=== PATIENT | female | born 1985 | race Caucasian/White ===

== ENCOUNTER 2016-07-06 08:23 | Emergency (ER) | payer OTHER ==
[2016-07-06 08:30] VITALS: BMI 22.4
--- NOTE | 2016-07-06 10:36 | PDOC ---
History of Present Illness <Zenon Merida - Last Filed: 07/06/16 15:31> - History of Present Illness Initial Comments: 07/06/16 15:38 The patient is a 30 year old with no past medical hx who presents to the ED complaining of left eye pain and chest pain since today. The patient states her chest pain is exacerbated with pressure but denies any radiation of pain. The patient states her left eye feels as if it is irritated but denies any changes in vision. The patient denies SOB The patient denies fever, chills The patient denies nausea, vomiting, diarrhea Allergies: albuterol Surgical: Denies tobacco use Social:No toxic habits reported PCP: Dr. Che <Cindy Perez - Last Filed: 07/06/16 15:39> - General Chief Complaint: Pain Stated Complaint: LT SIDE PAIN Time Seen by Provider: 07/06/16 08:39 Past History - Past Medical History Asthma: Yes - Psycho/Social/Smoking Cessation Hx Suicidal Ideation: No Smoking History: Never smoked Information on smoking cessation initiated: No <Zenon Merida - Last Filed: 07/06/16 15:31> <Cindy Perez - Last Filed: 07/06/16 15:39> - Past Medical History Allergies/Adverse Reactions: Allergies Allergy/AdvReac Type Severity Reaction Status Date / Time albuterol Allergy Verified 07/06/16 08:30 Home Medications: Ambulatory Orders Ciprofloxacin 0.3% Eye Drops [Ciloxan 0.3% Eye Drops -] 1 drop OU Q4H #1 bottle 07/06/16 Review of Systems - Review of Systems Able to Perform ROS?: Yes Comments:: 07/06/16 15:38 CONSTITUTIONAL: Absent: fever, chills, diaphoresis, generalized weakness, malaise, loss of appetite HEENT: +Left eye pain. Absent: rhinorrhea, nasal congestion, throat pain, throat swelling, difficulty swallowing, mouth swelling, ear pain, visual Changes CARDIOVASCULAR: +Chest pain. Absent: syncope, palpitations, irregular heart rate, lightheadedness, peripheral edema RESPIRATORY: Absent: cough, shortness of breath, dyspnea with exertion, orthopnea, wheezing, stridor, hemoptysis GASTROINTESTINAL: Absent: abdominal pain, abdominal distension, nausea, vomiting, diarrhea, constipation, melena, hematochezia GENITOURINARY: Absent: dysuria, frequency, urgency, hesitancy, hematuria, flank pain, genital pain MUSCULOSKELETAL: Absent: myalgia, arthralgia, joint swelling SKIN: Absent: rash, itching, pallor HEMATOLOGIC/IMMUNOLOGIC: Absent: easy bleeding, easy bruising, lymphadenopathy, frequent infections ENDOCRINE: Absent: unexplained weight gain, unexplained weight loss, heat intolerance, cold intolerance NEUROLOGIC: Absent: headache, focal weakness or paresthesias, dizziness, unsteady gait, seizure, mental status changes, bladder or bowel incontinence PSYCHIATRIC: Absent: anxiety, depression, suicidal or homicidal ideation, hallucinations. <Valorie Perezyn - Last Filed: 07/06/16 15:39> *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 - Vital Signs Last Vital Signs Temp Pulse Resp BP Pulse Ox 98 F 74 18 132/76 99 07/06/16 08:27 07/06/16 08:27 07/06/16 08:27 07/06/16 08:27 07/06/16 08:27 <Zenon Merida - Last Filed: 07/06/16 15:31> - Vital Signs Last Vital Signs Temp Pulse Resp BP Pulse Ox 98.1 F 86 18 119/79 98 07/06/16 15:14 07/06/16 15:14 07/06/16 15:14 07/06/16 15:14 07/06/16 15:14 - 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 Comments: 07/06/16 15:39 GENERAL: Well developed, well nourished. Awake and alert. In no acute distress. HEENT: +Left eye conjunctiva is red, cornea is clear. Normocephalic, atraumatic. PERRLA , EOMI. Moist mucous membranes. Oropharynx is clear. NECK: Supple. Full ROM. No JVD. Carotid pulses 2+ and symmetric, without bruits. No thyromegaly. No lymphadenopathy. CARDIOVASCULAR: +Chest wall tenderness to palpation. Regular rate and rhythm. No murmurs, rubs, or gallops. Distal pulses are 2+ and symmetric. PULMONARY: No evidence of respiratory distress. Lungs clear to auscultation bilaterally. No wheezing, rales or rhonchi. ABDOMINAL: Soft. Non-tender. Non-distended. No rebound or guarding. No organomegaly. Normoactive bowel sounds. MUSCULOSKELETAL Normal range of motion at all joints. No bony deformities or tenderness. No CVA tenderness. EXTREMITIES: No cyanosis. No clubbing. No edema. No calf tenderness. SKIN: Warm and dry. Normal capillary refill. No rashes. No jaundice. NEUROLOGICAL: Alert, awake, appropriate. Cranial nerves 2-12 intact. No deficits to light touch and temperature in face, upper extremities and lower extremities. No motor deficits in the in face, upper extremities and lower extremities. Normoreflexic in the upper and lower extremities. Normal speech. PSYCHIATRIC: Cooperative. Good eye contact. Appropriate mood and affect. <Cindy Perez - Last Filed: 07/06/16 15:39> Heart Score/ECG Review - ECG Impressions Comment:: 07/06/16 15:23 EKG performed at 9:56 NSR with sinus arrhythmia at a rate of 68 bpm <Cindy Perez - Last Filed: 07/06/16 15:39> ED Treatment Course - LABORATORY CBC & Chemistry Diagram: 07/06/16 10:34 07/06/16 13:47 <Zenon Merida - Last Filed: 07/06/16 15:31> - LABORATORY CBC & Chemistry Diagram: 07/06/16 10:34 07/06/16 13:47 - ADDITIONAL ORDERS Additional order review: Laboratory Results 07/06/16 07/06/16 07/06/16 13:47 11:42 10:34 INR Sodium 143 Cancelled Cancelled Potassium 3.8 Cancelled Cancelled Chloride 108 H Cancelled Cancelled Carbon Dioxide 25 Cancelled Cancelled Anion Gap 10 Cancelled Cancelled BUN 8 Cancelled Cancelled Creatinine 0.5 L Cancelled Cancelled Creat Clearance w eGFR > 60 Cancelled Cancelled Random Glucose 85 Cancelled Cancelled Calcium 8.1 L Cancelled Cancelled Total Bilirubin 0.4 Cancelled Cancelled AST 21 Cancelled Cancelled ALT 18 Cancelled Cancelled Alkaline Phosphatase 73 Cancelled Cancelled Creatine Kinase 68 Cancelled Cancelled Troponin I < 0.02 Cancelled Cancelled Total Protein 6.0 L Cancelled Cancelled Albumin 3.1 L Cancelled Cancelled Urine Color Urine Appearance Urine pH Ur Specific Cobb Urine Protein Urine Glucose (UA) Urine Ketones Urine Blood Urine Nitrite Urine Bilirubin Urine Urobilinogen Ur Leukocyte Esterase Urine RBC Urine WBC Ur Epithelial Cells Urine Mucus Urine HCG, Qual 07/06/16 07/06/16 07/06/16 10:34 10:34 10:34 INR 1.07 Sodium Potassium Chloride Carbon Dioxide Anion Gap BUN Creatinine Creat Clearance w eGFR Random Glucose Calcium Total Bilirubin AST ALT Alkaline Phosphatase Creatine Kinase Troponin I Total Protein Albumin Urine Color Straw Urine Appearance Clear Urine pH 6.0 Ur Specific Cobb 1.009 Urine Protein Negative Urine Glucose (UA) Negative Urine Ketones Negative Urine Blood 3+ H Urine Nitrite Negative Urine Bilirubin Negative Urine Urobilinogen Negative Ur Leukocyte Esterase Negative Urine RBC 14 Urine WBC 6 Ur Epithelial Cells Rare Urine Mucus Rare Urine HCG, Qual Negative 07/06/16 10:34 RBC 4.60 MCV 80.9 MCHC 31.7 L RDW 15.0 MPV 7.6 Neutrophils % 62.1 Lymphocytes % 26.3 Monocytes % 8.8 Eosinophils % 1.7 Basophils % 1.1 <Cindy Perez - Last Filed: 07/06/16 15:39> *DC/Admit/Observation/Transfer - Discharge Dispostion Admit: No <Zenon Merida - Last Filed: 07/06/16 15:31> - Attestations Scribe Attestion: 07/06/16 15:23 Documentation prepared by Cindy Perez, acting as medical manager for Zenon Merida MD, /DO. <Cindy Perez - Last Filed: 07/06/16 15:39> Diagnosis at time of Disposition: Costochondral chest pain, Conjunctivitis - Discharge Dispostion Disposition: HOME Condition at time of disposition: Good - Prescriptions Prescriptions: Ciprofloxacin 0.3% Eye Drops [Ciloxan 0.3% Eye Drops -] 1 drop OU Q4H #1 bottle - Referrals Referrals: Rehana Che [Primary Care Provider] - - Patient Instructions Printed Discharge Instructions: DI for Conjunctivitis, DI for Costochondritis - Post Discharge Activity Work/School Note: Back to Work
[2016-07-06 11:02] LABS: URINE APPEARANCE CLEAR; URINE BILIRUBIN NEGATIVE (NEGATIVE); URINE COLOR STRAW; URINE GLUCOSE (UA) NEGATIVE (NEGATIVE); URINE KETONE NEGATIVE (NEGATIVE); URINE LEUK ESTERASE NEGATIVE (NEGATIVE); URINE NITRITE NEGATIVE (NEGATIVE); URINE PROTEIN NEGATIVE (NEGATIVE); URINE UROBILINOGEN NEGATIVE E.U./dl (0.2-1.0)
[2016-07-06 11:06] LABS: URINE BLOOD 3+ (NEGATIVE)
[2016-07-06 11:08] LABS: BASOPHIL 1.1 % (0-2.0); EOSINOPHIL 1.7 % (0-4.5); MCH 25.6 pg (25.7-33.7); MCHC 31.7 g/dl (32.0-36.0); MEAN CELL VOLUME 80.9 fl (80-96); MEAN PLT VOLUME 7.6 fl (7.5-11.1); NEUTROPHILS 62.1 % (42.8-82.8); PLATELET COUNT 304 K/MM3 (134-434); URINE MUCUS RARE; URINE RBC 14 /hpf (0-3); URINE WBC 6 /hpf (3-5)
[2016-07-06 11:52] LABS: INR 1.07 (0.82-1.09); PROTHROMBIN TIME (PATIENT) 11.8 SEC (9.98-11.88)
[2016-07-06 14:29] LABS: ALBUMIN 3.1 g/dl (3.4-5.0); ANION GAP 10 (8-16); BILIRUBIN,TOTAL 0.4 mg/dL (0.2-1.0); CALCIUM 8.1 mg/dL (8.5-10.1); CO2 25 mmol/L (21-32); CREATININE 0.5 mg/dL (0.55-1.02); GLUCOSE,RANDOM 85 mg/dL (74-106); SGPT/ALT 18 U/L (12-78)
[2016-07-06 14:31] LABS: ALK PHOS 73 U/L (45-117); TROPONIN I < 0.02 ng/ml (0.00-0.05)
[2016-07-06 14:32] LABS: SGOT/AST 21 U/L (15-37)
[2016-07-06 15:15] VITALS: BP 119/79; PULSE 86; TEMP 98.1
--- NOTE | 2016-07-06 15:32 | EKG ---
Test Reason : Blood Pressure : / mmHG Vent. Rate : 068 BPM Atrial Rate : 068 BPM P-R Int : 160 ms QRS Dur : 072 ms QT Int : 406 ms P-R-T Axes : 067 059 047 degrees QTc Int : 431 ms NORMAL SINUS RHYTHM WITH SINUS ARRHYTHMIA NORMAL ECG NO PREVIOUS ECGS AVAILABLE Confirmed by TERRY GRAHAM, ROMI ([id number]) on 07/06/2016 3:31:57 PM Referred By: Confirmed By:ROMI STEWART MD
== END 2016-07-06 15:40 | disposition home or self-care (01) ==
LOC: JERFT 08:23 → JER 08:23
DX: M94.0 Chondrocostal junction syndrome [Tietze] (principal); H10.32 Unspecified acute conjunctivitis, left eye
CPT/HCPCS: 36415; 80053; 81003; 81015; 82550; 84484; 84703; 85025; 85610; 93005; 93010; 99284-25

== ENCOUNTER 2016-08-19 17:30 | Emergency (ER) | payer OTHER ==
[2016-08-19 17:40] VITALS: BP 131/76; PULSE 93; TEMP 97.8; BMI 21.8
[2016-08-19] MEDS ORDERED: IBUPROFEN 600 MG TABLET (FP) PO ONE ×2 (19:17→20:01)
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
== END 2016-08-19 21:02 | disposition home or self-care (01) ==
LOC: JERFT 17:30
DX: S46.912A Strain of unspecified muscle, fascia and tendon at shoulder and upper arm level, left arm, initial encounter (principal); S40.022A Contusion of left upper arm, initial encounter; V78.1XXA Passenger on bus injured in noncollision transport accident in nontraffic accident, initial encounter; Y92.414 Local residential or business street as the place of occurrence of the external cause; Y93.89 Activity, other specified
CPT/HCPCS: 73030-TC-LT; 84703; 99281-25

== ENCOUNTER 2016-11-21 17:47 | Emergency (ER) | payer OTHER ==
[2016-11-21 17:54] VITALS: BP 126/60; PULSE 93; TEMP 98.3; BMI 22.3
--- NOTE | 2016-11-21 17:54 | PDOC ---
Rapid Medical Evaluation Time Seen by Provider: 11/21/16 17:50 Medical Evaluation: Allergies Allergy/AdvReac Type Severity Reaction Status Date / Time albuterol Allergy Verified 08/19/16 17:37 I have performed a brief in-person evaluation of this patient. The patient presents with a chief complaint of: nausea, vomiting, diarrhea today ; now she has abdominal discomfort. Pt admits to fever at home but did not take a temperature. She is afebrile in the ER. Pertinent physical exam findings: TTP of lower abdomen and suprapubic region I have ordered the following: hcg, UA, culture The patient will proceed to the ED for further evaluation.
[2016-11-21 18:08] LABS: URINE APPEARANCE CLEAR; URINE BILIRUBIN NEGATIVE (NEGATIVE); URINE BLOOD NEGATIVE (NEGATIVE); URINE COLOR LTYELLOW; URINE GLUCOSE (UA) NEGATIVE (NEGATIVE); URINE KETONE 1+ (NEGATIVE); URINE NITRITE NEGATIVE (NEGATIVE); URINE PROTEIN NEGATIVE (NEGATIVE); URINE UROBILINOGEN NEGATIVE E.U./dl (0.2-1.0)
[2016-11-21 18:10] LABS: URINE LEUK ESTERASE 2+ (NEGATIVE)
--- NOTE | 2016-11-21 19:00 | PDOC ---
History of Present Illness - General Chief Complaint: Pain Stated Complaint: VOMITING/DIARRHEA Time Seen by Provider: 11/21/16 17:50 History Source: Patient Exam Limitations: No Limitations, Language Barrier - History of Present Illness Travel History: No Initial Comments: 11/21/16 19:15 31-year-old female presents to the emergency department complaining of pain upon urination, urinary frequency/urgency/hesitancy 8 hours without fever, chills, nausea/vomiting/diarrhea, chest pain, shortness of breath, abdominal pains, flank pains. Past History - Past Medical History Allergies/Adverse Reactions: Allergies Allergy/AdvReac Type Severity Reaction Status Date / Time albuterol Allergy Verified 11/21/16 17:54 Home Medications: Ambulatory Orders Nitrofurantoin Monohyd/M-Cryst [Macrobid -] 100 mg PO BID #14 capsule 11/21/16 Omeprazole 20 mg PO DAILY 11/21/16 Asthma: Yes - Psycho/Social/Smoking Cessation Hx Suicidal Ideation: No Smoking History: Never smoked Information on smoking cessation initiated: No Review of Systems - Review of Systems Able to Perform ROS?: Yes Comments:: 11/21/16 20:05 CONSTITUTIONAL: Absent: fever, chills, diaphoresis, generalized weakness, malaise, loss of appetite HEENT: Absent: rhinorrhea, nasal congestion, throat pain, throat swelling, difficulty swallowing, mouth swelling, ear pain, eye pain, visual Changes CARDIOVASCULAR: Absent: chest pain, loss of consciousness, palpitations, irregular heart rate, peripheral edema RESPIRATORY: Absent: cough, shortness of breath, dyspnea with exertion, orthopnea, wheezing, stridor, hemoptysis GASTROINTESTINAL: Absent: abdominal pain, abdominal distension, nausea, vomiting, diarrhea, constipation, melena, hematochezia GENITOURINARY: +dysuria, frequency, urgency, hesitancy Absent: hematuria, flank pain, genital pain MUSCULOSKELETAL: Absent: myalgia, arthralgia, joint swelling SKIN: Absent: rash, itching, pallor HEMATOLOGIC/IMMUNOLOGIC: Absent: easy bleeding, easy bruising, lymphadenopathy, frequent infections ENDOCRINE: Absent: unexplained weight gain, unexplained weight loss, heat intolerance, cold intolerance NEUROLOGIC: Absent: headache, focal weakness or paresthesias, dizziness, unsteady gait, seizure, mental status changes, bladder or bowel incontinence PSYCHIATRIC: Absent: anxiety, depression, suicidal or homicidal ideation, hallucinations. Is the patient limited Urdu proficient: No *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 - Vital Signs Last Vital Signs Temp Pulse Resp BP Pulse Ox 98.3 F 93 H 18 126/60 98 11/21/16 17:50 11/21/16 17:50 11/21/16 17:50 11/21/16 17:50 11/21/16 17:50 - 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 Comments: 11/21/16 20:05 GENERAL: Well developed, well nourished. Awake and alert. No acute distress. HEENT: Normocephalic, atraumatic. PERRLA, EOMI. No conjunctival pallor. Sclera are non- icteric. Moist mucous membranes. Oropharynx is clear. NECK: Supple. Full ROM. No JVD. Carotid pulses 2+ and symmetric, without bruits. No thyromegaly. No lymphadenopathy. CARDIOVASCULAR: Regular rate and rhythm. No murmurs, rubs, or gallops. Distal pulses are 2+ and symmetric. PULMONARY: No evidence of respiratory distress. Lungs clear to auscultation bilaterally. No wheezing, rales or rhonchi. ABDOMINAL: +bladder pressure on palp Soft. Non-tender. Non-distended. No rebound or guarding. No organomegaly. Normoactive bowel sounds. MUSCULOSKELETAL Normal range of motion at all joints. No bony deformities or tenderness. No CVA tenderness. EXTREMITIES: No cyanosis. No clubbing. No edema. No calf tenderness. SKIN: Warm and dry. Normal capillary refill. No rashes. No jaundice. NEUROLOGICAL: Alert, awake, appropriate. Cranial nerves 2-12 intact. No deficits to light touch and temperature in face, upper extremities and lower extremities. No motor deficits in the in face, upper extremities and lower extremities. Normoreflexic in the upper and lower extremities. Normal speech. Toes are down- going bilaterally. Gait is normal without ataxia. PSYCHIATRIC: Cooperative. Good eye contact. Appropriate mood and affect. ED Treatment Course - LABORATORY CBC & Chemistry Diagram: 11/21/16 19:00 11/21/16 19:00 - ADDITIONAL ORDERS Additional order review: Laboratory Results 11/21/16 17:44 Urine Color Ltyellow Urine Appearance Clear Urine pH 6.0 Urine Protein Negative Urine Glucose (UA) Negative Urine Ketones 1+ H Urine Blood Negative Urine Nitrite Negative Urine Bilirubin Negative Urine Urobilinogen Negative Ur Leukocyte Esterase 2+ H Urine HCG, Qual Negative *DC/Admit/Observation/Transfer Diagnosis at time of Disposition: UTI (urinary tract infection) Qualifiers: Urinary tract infection type: acute cystitis Hematuria presence: without hematuria Qualified Code(s): N30.00 - Acute cystitis without hematuria - Discharge Dispostion Disposition: HOME Condition at time of disposition: Stable Admit: No - Prescriptions Prescriptions: Nitrofurantoin Monohyd/M-Cryst [Macrobid -] 100 mg PO BID #14 capsule - Referrals Referrals: STAFF,NOT ON [Primary Care Provider] - Jay Coffey MD [Staff Physician] - - Patient Instructions Printed Discharge Instructions: DI for Urinary Tract Infection (UTI) Print Language: SETS[place] - Post Discharge Activity Work/School Note: Back to Work
[2016-11-21 19:12] LABS: BASOPHIL 0.6 % (0-2.0); EOSINOPHIL 0.6 % (0-4.5); MCH 24.8 pg (25.7-33.7); MCHC 31.1 g/dl (32.0-36.0); MEAN CELL VOLUME 79.7 fl (80-96); MEAN PLT VOLUME 8.5 fl (7.5-11.1); NEUTROPHILS 78.2 % (42.8-82.8); PLATELET COUNT 334 K/MM3 (134-434); RDW 15.5 % (11.6-15.6); WHITE BLOOD COUNT 11.1 K/mm3 (4.0-10.0)
[2016-11-21] MEDS ORDERED: NITROFURANTOIN MACROCRYSTAL 50 MG CAPSULE (FP) PO SCH (19:30)
[2016-11-21] MEDS ORDERED: NITROFURANTOIN MACROCRYSTAL 50 MG CAPSULE (FP) ONE (19:33)
[2016-11-21 19:35] LABS: ALBUMIN 3.4 g/dl (3.4-5.0); ALK PHOS 89 U/L (45-117); ANION GAP 11 (8-16); BILIRUBIN,TOTAL 0.6 mg/dL (0.2-1.0); CALCIUM 8.2 mg/dL (8.5-10.1); CO2 26 mmol/L (21-32); COCKROFT - GAULT 124.1425; CREATININE 0.6 mg/dL (0.55-1.02); GLUCOSE,RANDOM 104 mg/dL (74-106); SGPT/ALT 23 U/L (12-78); TOT PROT 6.5 g/dl (6.4-8.2)
[2016-11-21 19:38] LABS: SGOT/AST 26 U/L (15-37)
[2016-11-21 19:56] LABS: URINE MUCUS RARE; URINE RBC 2 /hpf (0-3); URINE WBC 58 /hpf (3-5)
[2016-11-21] MEDS ORDERED: SODIUM CHLORIDE 1,000 ML IV STA (20:09)
--- NOTE | 2016-11-21 20:26 | PDOC ---
*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 - Vital Signs Last Vital Signs Temp Pulse Resp BP Pulse Ox 98.3 F 93 H 18 126/60 98 11/21/16 17:50 11/21/16 17:50 11/21/16 17:50 11/21/16 17:50 11/21/16 17:50 ED Treatment Course - LABORATORY CBC & Chemistry Diagram: 11/21/16 19:00 11/21/16 19:00 - ADDITIONAL ORDERS Additional order review: Laboratory Results 11/21/16 11/21/16 19:00 17:44 Sodium 143 Potassium 3.8 Chloride 106 Carbon Dioxide 26 Anion Gap 11 BUN 11 D Creatinine 0.6 Creat Clearance w eGFR > 60 Random Glucose 104 D Calcium 8.2 L Total Bilirubin 0.6 D AST 26 D ALT 23 D Alkaline Phosphatase 89 D Total Protein 6.5 Albumin 3.4 Urine Color Ltyellow Urine Appearance Clear Urine pH 6.0 Urine Protein Negative Urine Glucose (UA) Negative Urine Ketones 1+ H Urine Blood Negative Urine Nitrite Negative Urine Bilirubin Negative Urine Urobilinogen Negative Ur Leukocyte Esterase 2+ H Urine RBC 2 Urine WBC 58 Ur Epithelial Cells Rare Urine Mucus Rare Urine HCG, Qual Negative 11/21/16 19:00 RBC 4.72 MCV 79.7 L MCHC 31.1 L RDW 15.5 MPV 8.5 D Neutrophils % 78.2 D Lymphocytes % 15.2 D Monocytes % 5.4 Eosinophils % 0.6 Basophils % 0.6 Medical Decision Making - Medical Decision Making 11/21/16 20:26 agree with care from TAMEKA Boswell *DC/Admit/Observation/Transfer Diagnosis at time of Disposition: UTI (urinary tract infection) Qualifiers: Urinary tract infection type: acute cystitis Hematuria presence: without hematuria Qualified Code(s): N30.00 - Acute cystitis without hematuria - Discharge Dispostion Condition at time of disposition: Stable - Prescriptions Prescriptions: Nitrofurantoin Monohyd/M-Cryst [Macrobid -] 100 mg PO BID #14 capsule - Referrals Referrals: Jay Coffey MD [Staff Physician] - STAFF,NOT ON [Primary Care Provider] - - Patient Instructions Printed Discharge Instructions: DI for Urinary Tract Infection (UTI) Print Language: [place]AST [place] - Post Discharge Activity Work/School Note: Back to Work
== END 2016-11-21 20:37 | disposition home or self-care (01) ==
LOC: JER 17:47
PROC: 3E0337Z Introduction of Electrolytic and Water Balance Substance into Peripheral Vein, Percutaneous Approach (ICD-10-PCS; principal; 2016-11-21)
DX: N30.00 Acute cystitis without hematuria (principal)
CPT/HCPCS: 36415; 80053; 81003; 81015; 84703; 85025; 87086; 96360; 99284-25

== ENCOUNTER 2017-07-10 16:16 | Emergency (ER) | payer OTHER ==
[2017-07-10] MEDS ORDERED: SODIUM CHLORIDE 1,000 ML IV STA (16:18)
[2017-07-10] MEDS ORDERED: METOCLOPRAMIDE HCL INJECTION 10 MG/2 ML VIAL IVPB ONE (16:18)
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
[2017-07-10 16:22] VITALS: BP 126/82; PULSE 100; TEMP 98.3; BMI 26.6
[2017-07-10 17:06] LABS: BASO % 0.5 % (0-2.0); HEMATOCRIT 39.2 % (32.4-45.2)
[2017-07-10 17:22] LABS: EOS % 1.8 % (0-4.5); HEMOGLOBIN 12.1 GM/dL (10.7-15.3); LYMPH % 22.5 % (8-40); MCH 24.7 pg (25.7-33.7); MCHC 30.9 g/dl (32.0-36.0); MEAN CELL VOLUME 79.8 fl (80-96); MEAN PLT VOLUME 7.9 fl (7.5-11.1); NEUT % 68.2 % (42.8-82.8); PLATELET COUNT 318 K/MM3 (134-434); RBC 4.91 M/mm3 (3.60-5.2); RDW 14.8 % (11.6-15.6); WHITE BLOOD COUNT 9.2 K/mm3 (4.0-10.0)
[2017-07-10 17:25] LABS: URINE APPEARANCE SLCLOUDY; URINE BILIRUBIN NEGATIVE (NEGATIVE); URINE BLOOD 1+ (NEGATIVE); URINE COLOR LTYELLOW; URINE GLUCOSE (UA) NEGATIVE (NEGATIVE); URINE KETONE 1+ (NEGATIVE); URINE NITRITE NEGATIVE (NEGATIVE); URINE PROTEIN NEGATIVE (NEGATIVE); URINE UROBILINOGEN NEGATIVE mg/dL (0.2-1.0)
[2017-07-10 17:35] LABS: URINE LEUK ESTERASE 3+ (NEGATIVE)
[2017-07-10 17:38] LABS: EPI CELLS RARE /HPF (FEW); URINE BACTERIA FEW /hpf (NONE SEEN); URINE MUCUS RARE
[2017-07-10 17:40] LABS: ALBUMIN 3.7 g/dl (3.4-5.0); ANION GAP 9 (8-16); BLOOD UREA NITROGEN 11 mg/dL (7-18); CALCIUM 8.6 mg/dL (8.5-10.1); CHLORIDE 106 mmol/L (98-107); CO2 26 mmol/L (21-32); CREATININE 0.6 mg/dL (0.55-1.02); GLUCOSE,RANDOM 86 mg/dL (74-106); POTASSIUM 3.9 mmol/L (3.5-5.1); SGOT/AST 23 U/L (15-37); SGPT/ALT 30 U/L (12-78); SODIUM 141 mmol/L (136-145)
[2017-07-10 17:42] LABS: ALK PHOS 78 U/L (45-117); BILIRUBIN,TOTAL 0.6 mg/dL (0.2-1.0)
[2017-07-10] MEDS ORDERED: KETOROLAC TROMETHAMINE 30 MG/1 ML VIAL IVPUSH ONE (20:28)
--- NOTE | 2017-07-10 20:30 | PDOC ---
History of Present Illness - General History Source: Patient Exam Limitations: No Limitations - History of Present Illness Initial Comments: 07/10/17 21:07 The patient is a 31 year old female with no significant PMH who presents to the emergency department with flu-like symptoms including fever, body aches, generalized malaise, vomiting, and diarrhea beginning approximately 3 days ago. The patient denies sick contacts. The patient denies chest pain, shortness of breath, headache and dizziness. Denies chills and constipation. Denies dysuria, frequency, urgency and hematuria. Allergies: Albuterol Past surgical history: None reported. Social history: No reported cigarette, alcohol, or drug use. PCP: None reported. <Bonilla Chavez - Last Filed: 07/10/17 21:07> - General History Source: Patient <Lenny Moore - Last Filed: 07/10/17 21:58> - General Chief Complaint: Pain Stated Complaint: FATIGUE,VOMITING, DIARRHEA,HEADACHE Time Seen by Provider: 07/10/17 16:18 Past History <Bonilla Chavez - Last Filed: 07/10/17 21:07> - Past Medical History Asthma: Yes COPD: No Other medical history: migrane - Suicide/Smoking/Psychosocial Hx Smoking History: Never smoked Information on smoking cessation initiated: No Hx Alcohol Use: No Drug/Substance Use Hx: No Substance Use Type: None <Lenny Moore - Last Filed: 07/10/17 21:58> - Past Medical History Allergies/Adverse Reactions: Allergies Allergy/AdvReac Type Severity Reaction Status Date / Time albuterol Allergy Verified 07/10/17 16:22 Home Medications: Ambulatory Orders Nitrofurantoin Monohyd/M-Cryst [Macrobid -] 100 mg PO BID #14 capsule 11/21/16 Omeprazole 20 mg PO DAILY 11/21/16 Ibuprofen 800 mg PO TID #30 tablet 07/10/17 Levofloxacin [Levaquin -] 500 mg PO DAILY #4 tablet 07/10/17 Metoclopramide HCl [Reglan -] 10 mg PO TID #30 tablet 07/10/17 Review of Systems - Review of Systems Able to Perform ROS?: Yes Comments:: 07/10/17 21:07 CONSTITUTIONAL: (+) Fever. (+) Body aches. (+) Generalized malaise. Absent: fever, chills, diaphoresis, generalized weakness, malaise, loss of appetite HEENT: Absent: rhinorrhea, nasal congestion, throat pain, throat swelling, difficulty swallowing, mouth swelling, ear pain, eye pain, visual Changes CARDIOVASCULAR: Absent: chest pain, syncope, palpitations, irregular heart rate, lightheadedness , peripheral edema RESPIRATORY: Absent: cough, shortness of breath, dyspnea with exertion, orthopnea, wheezing, stridor, hemoptysis GASTROINTESTINAL: (+) Vomiting. (+) Diarrhea. Absent: abdominal pain, abdominal distension, nausea, vomiting, diarrhea, constipation, melena, hematochezia GENITOURINARY: Absent: dysuria, frequency, urgency, hesitancy, hematuria, flank pain, genital pain MUSCULOSKELETAL: Absent: myalgia, arthralgia, joint swelling SKIN: Absent: rash, itching, pallor HEMATOLOGIC/IMMUNOLOGIC: Absent: easy bleeding, easy bruising, lymphadenopathy, frequent infections ENDOCRINE: Absent: unexplained weight gain, unexplained weight loss, heat intolerance, cold intolerance NEUROLOGIC: Absent: headache, focal weakness or paresthesias, dizziness, unsteady gait, seizure, mental status changes, bladder or bowel incontinence PSYCHIATRIC: Absent: anxiety, depression, suicidal or homicidal ideation, hallucinations. <Bonilla Chavez - Last Filed: 07/10/17 21:07> *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 - Vital Signs Last Vital Signs Temp Pulse Resp BP Pulse Ox 98.3 F 100 H 19 126/82 100 07/10/17 16:19 07/10/17 16:19 07/10/17 16:19 07/10/17 16:19 07/10/17 16:19 - 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 Comments: 07/10/17 21:07 GENERAL: (+) Mild distress. Well developed, well nourished. Awake and alert. No acute distress. HEENT: Normocephalic, atraumatic. PERRLA, EOMI. No conjunctival pallor. Sclera are non- icteric. Moist mucous membranes. Oropharynx is clear. NECK: Supple. Full ROM. No JVD. Carotid pulses 2+ and symmetric, without bruits. No thyromegaly. No lymphadenopathy. CARDIOVASCULAR: (+) Tachycardic. Regular rate and rhythm. No murmurs, rubs, or gallops. Distal pulses are 2+ and symmetric. PULMONARY: No evidence of respiratory distress. Lungs clear to auscultation bilaterally. No wheezing, rales or rhonchi. ABDOMINAL: Soft. Non-tender. Non-distended. No rebound or guarding. No organomegaly. Normoactive bowel sounds. MUSCULOSKELETAL Normal range of motion at all joints. No bony deformities or tenderness. No CVA tenderness. EXTREMITIES: No cyanosis. No clubbing. No edema. No calf tenderness. BACK: (+) Mild CVA tenderness bilaterally. SKIN: Warm and dry. Normal capillary refill. No rashes. No jaundice. NEUROLOGICAL: Alert, awake, appropriate. Cranial nerves 2-12 intact. No deficits to light touch and temperature in face, upper extremities and lower extremities. No motor deficits in the in face, upper extremities and lower extremities. Normoreflexic in the upper and lower extremities. Normal speech. Toes are downgoing bilaterally. Gait is normal without ataxia. PSYCHIATRIC: Cooperative. Good eye contact. Appropriate mood and affect. <Bonilla Chavez - Last Filed: 07/10/17 21:07> - Vital Signs Last Vital Signs Temp Pulse Resp BP Pulse Ox 98.3 F 100 H 19 126/82 100 07/10/17 16:19 07/10/17 16:19 07/10/17 16:19 07/10/17 16:19 07/10/17 16:19 <Lenny Moore - Last Filed: 07/10/17 21:58> ED Treatment Course - LABORATORY CBC & Chemistry Diagram: 07/10/17 16:43 07/10/17 16:43 - ADDITIONAL ORDERS Additional order review: Laboratory Results 07/10/17 07/10/17 07/10/17 16:45 16:43 16:43 Sodium 141 Potassium 3.9 Chloride 106 Carbon Dioxide 26 Anion Gap 9 BUN 11 Creatinine 0.6 Creat Clearance w eGFR > 60 Random Glucose 86 Calcium 8.6 Total Bilirubin 0.6 AST 23 ALT 30 Alkaline Phosphatase 78 Total Protein 7.0 Albumin 3.7 Serum , Qual Negative Urine Color Ltyellow Urine Appearance Slcloudy Urine pH 6.0 Ur Specific [place] 1.011 Urine Protein Negative Urine Glucose (UA) Negative Urine Ketones 1+ H Urine Blood 1+ H Urine Nitrite Negative Urine Bilirubin Negative Urine Urobilinogen Negative Ur Leukocyte Esterase 3+ H Urine WBC (Auto) 25 Urine RBC (Auto) 1 Ur Epithelial Cells Rare Urine Bacteria Few Urine Mucus Rare 07/10/17 16:20 Influenza Types A,B Antigen (PEPE) - Final Nasopharyngeal Swab - Final 07/10/17 16:43 RBC 4.91 MCV 79.8 L MCHC 30.9 L RDW 14.8 MPV 7.9 Neutrophils % 68.2 Lymphocytes % 22.5 D Monocytes % 7.0 Eosinophils % 1.8 D Basophils % 0.5 - Medications Given in the ED: ED Medications Discontinued Medications Generic Name Dose Route Start Last Admin Trade Name Freq PRN Reason Stop Dose Admin Ceftriaxone Sodium 1,000 mg 07/10/17 20:28 07/10/17 21:02 Rocephin - IVPB 07/10/17 20:29 1,000 mg ONCE ONE Administration Sodium Chloride 1,000 mls @ 1,000 mls/hr 07/10/17 16:18 07/10/17 21:02 Normal Saline - IV 07/10/17 17:17 1,000 mls/hr ASDIR STA Administration Ketorolac Tromethamine 30 mg 07/10/17 20:28 07/10/17 21:02 Toradol Injection - IVPUSH 07/10/17 20:29 30 mg ONCE ONE Administration Metoclopramide HCl 10 mg 07/10/17 16:18 07/10/17 21:02 Reglan Injection - IVPB 07/10/17 16:19 10 mg ONCE ONE Administration <Bonilla Chavez - Last Filed: 07/10/17 21:07> - LABORATORY CBC & Chemistry Diagram: 07/10/17 16:43 07/10/17 16:43 - ADDITIONAL ORDERS Additional order review: Laboratory Results 07/10/17 07/10/17 07/10/17 16:45 16:43 16:43 Sodium 141 Potassium 3.9 Chloride 106 Carbon Dioxide 26 Anion Gap 9 BUN 11 Creatinine 0.6 Creat Clearance w eGFR > 60 Random Glucose 86 Calcium 8.6 Total Bilirubin 0.6 AST 23 ALT 30 Alkaline Phosphatase 78 Total Protein 7.0 Albumin 3.7 Serum , Qual Negative Urine Color Ltyellow Urine Appearance Slcloudy Urine pH 6.0 Ur Specific [place] 1.011 Urine Protein Negative Urine Glucose (UA) Negative Urine Ketones 1+ H Urine Blood 1+ H Urine Nitrite Negative Urine Bilirubin Negative Urine Urobilinogen Negative Ur Leukocyte Esterase 3+ H Urine WBC (Auto) 25 Urine RBC (Auto) 1 Ur Epithelial Cells Rare Urine Bacteria Few Urine Mucus Rare 07/10/17 16:20 Influenza Types A,B Antigen (PEPE) - Final Nasopharyngeal Swab - Final 07/10/17 16:43 RBC 4.91 MCV 79.8 L MCHC 30.9 L RDW 14.8 MPV 7.9 Neutrophils % 68.2 Lymphocytes % 22.5 D Monocytes % 7.0 Eosinophils % 1.8 D Basophils % 0.5 <Lenny Moore - Last Filed: 07/10/17 21:58> Medical Decision Making - Medical Decision Making 07/10/17 21:58 Dr. Moore: The scribe's documentation has been prepared under my direction and personally reviewed by me in its entirery. I confirm that the note above accurately reflects all work, treatment, procedures, and medical decision making performed by me. <Lenny Moore - Last Filed: 07/10/17 21:58> *DC/Admit/Observation/Transfer - Attestations Scribe Attestion: 07/10/17 21:08 Documentation prepared by Bonilla Chavez, acting as medical accounts receivable specialist for Lenny Moore DO. <Bonilla Chavez - Last Filed: 07/10/17 21:07> - Discharge Dispostion Admit: No <Lenny Moore - Last Filed: 07/10/17 21:58> Diagnosis at time of Disposition: UTI (urinary tract infection) Qualifiers: Urinary tract infection type: site unspecified Hematuria presence: without hematuria Qualified Code(s): N39.0 - Urinary tract infection, site not specified - Discharge Dispostion Disposition: HOME Condition at time of disposition: Stable - Prescriptions Prescriptions: Levofloxacin [Levaquin -] 500 mg PO DAILY #4 tablet - Patient Instructions Printed Discharge Instructions: DI for Urinary Tract Infection (UTI) Additional Instructions: Take medications as directed. Please follow up with your doctor in two for re- evaluation. Drink plenty of fluids. Return if any problems. Print Language: MALDIVIAN
[2017-07-10] MEDS ORDERED: CEFTRIAXONE 1 GM/50 ML BAG ONE (20:46)
[2017-07-10] MEDS ORDERED: METOCLOPRAMIDE HCL INJECTION 10 MG/2 ML VIAL ONE (20:46)
[2017-07-10] MEDS ORDERED: KETOROLAC TROMETHAMINE 30 MG/1 ML VIAL ONE (20:46)
== END 2017-07-10 22:05 | disposition home or self-care (01) ==
LOC: JER 16:16
PROC: 3E03329 Introduction of Other Anti-infective into Peripheral Vein, Percutaneous Approach (ICD-10-PCS; principal; 2017-07-10)
PROC: 3E0333Z Introduction of Anti-inflammatory into Peripheral Vein, Percutaneous Approach (ICD-10-PCS; 2017-07-10)
PROC: 3E033GC Introduction of Other Therapeutic Substance into Peripheral Vein, Percutaneous Approach (ICD-10-PCS; 2017-07-10)
DX: N39.0 Urinary tract infection, site not specified (principal)
CPT/HCPCS: 36415; 80053; 81003; 81015; 84703; 85025; 87804; 96374; 96375; 99281-25

== ENCOUNTER 2017-08-24 16:55 | Emergency (ER) | payer OTHER ==
--- NOTE | 2017-08-24 17:20 | PDOC ---
Rapid Medical Evaluation Time Seen by Provider: 08/24/17 17:18 Medical Evaluation: Allergies Allergy/AdvReac Type Severity Reaction Status Date / Time albuterol Allergy Verified 08/24/17 17:17 08/24/17 17:18 I have performed a brief in-person evaluation of this patient. The patient presents with a chief complaint of: , ~8 weeks , s/p US @ 5 weeks w/ "empty sac", scheduled for rpt US in near future per pt, here w/ pelvic pain radiating to lower back w/ ?dysuria/freq since yesterday. No f/c or vag bleed Pertinent physical exam findings:stable w/ unremarkable exam I have ordered the following:beta/ua/US The patient will proceed to the ED for further evaluation.
[2017-08-24 17:22] VITALS: PULSE 78; BMI 20.9
[2017-08-24 17:48] LABS: URINE APPEARANCE CLEAR; URINE BILIRUBIN NEGATIVE (NEGATIVE); URINE BLOOD NEGATIVE (NEGATIVE); URINE COLOR LTYELLOW; URINE GLUCOSE (UA) NEGATIVE (NEGATIVE); URINE KETONE NEGATIVE (NEGATIVE); URINE LEUK ESTERASE TRACE (NEGATIVE); URINE NITRITE NEGATIVE (NEGATIVE); URINE PROTEIN NEGATIVE (NEGATIVE); URINE UROBILINOGEN NEGATIVE mg/dL (0.2-1.0)
[2017-08-24 17:51] LABS: EPI CELLS RARE /HPF (FEW); URINE MUCUS RARE
[2017-08-24 18:28] LABS: BASO % 0.7 % (0-2.0); EOS % 2.3 % (0-4.5); HEMATOCRIT 35.1 % (32.4-45.2); HEMOGLOBIN 11.3 GM/dL (10.7-15.3); LYMPH % 28.1 % (8-40); MCH 25.9 pg (25.7-33.7); MCHC 32.3 g/dl (32.0-36.0); MEAN CELL VOLUME 80.3 fl (80-96); MEAN PLT VOLUME 7.7 fl (7.5-11.1); MONO % 8.3 % (3.8-10.2); NEUT % 60.6 % (42.8-82.8); PLATELET COUNT 302 K/MM3 (134-434); RBC 4.38 M/mm3 (3.60-5.2); RDW 15.6 % (11.6-15.6); WHITE BLOOD COUNT 7.5 K/mm3 (4.0-10.0)
--- NOTE | 2017-08-24 18:43 | PDOC ---
History of Present Illness <Sharonda Chamorro - Last Filed: 08/24/17 19:29> - History of Present Illness Initial Comments: 08/24/17 18:39 "The patient is a 32 year old female, , 8 weeks by LMP, with a significant PMH of asthma who presents to the emergency department with LLQ pain radiating to her suprapubic region. Pt states the pain began yesterday and is colicky in nature. She took Tylenol with no relief. Pt denies any N/V/D. Denies vaginal bleeding currently but reports yellowish discharge. Pt states that 3 weeks ago she presented to her can marker with vaginal spotting. Her OB did blood work but no ultrasound. She was scheduled for an outpt US but was unable to obtain this due to insurance reasons. The patient denies chest pain, shortness of breath, headache and dizziness. Denies fever, chills, nausea, vomit, diarrhea and constipation. Denies dysuria, frequency, urgency and hematuria. 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" <Jamshid Ku - Last Filed: 08/24/17 20:46> - General Chief Complaint: ,Possible Stated Complaint: PAIN (8 WKS ) Time Seen by Provider: 08/24/17 17:18 Past History <Sharonda Chamorro - Last Filed: 08/24/17 19:29> - Past Medical History Asthma: Yes COPD: No - Reproductive History Is Patient Now?: Yes (8 wks) (#): 2 Para: 1 Spontaneous : 0 - Immunization History Immunization Up to Date: Yes - Suicide/Smoking/Psychosocial Hx Smoking History: Never smoked Have you smoked in the past 12 months: No Information on smoking cessation initiated: No Hx Alcohol Use: No Drug/Substance Use Hx: No Substance Use Type: None <Jamshid Ku - Last Filed: 08/24/17 20:46> - Past Medical History Allergies/Adverse Reactions: Allergies Allergy/AdvReac Type Severity Reaction Status Date / Time albuterol Allergy Verified 08/24/17 17:17 Home Medications: Ambulatory Orders Clotrimazole [Gyne-Lotrimin -] 1 applic VG DAILY 7 Days #1 tube 08/24/17 No122/Iron/Folic Acid [ Multi Tablet] 1 each PO DAILY 08/24/17 Review of Systems - Review of Systems Able to Perform ROS?: Yes Comments:: 08/24/17 19:29 GENERAL/CONSTITUTIONAL: No fever or chills. No weakness. HEAD, EYES, EARS, NOSE AND THROAT: No change in vision. No ear pain or discharge. No sore throat. CARDIOVASCULAR: No chest pain or shortness of breath. RESPIRATORY: No cough, wheezing, or hemoptysis. GASTROINTESTINAL: (+) LLQ pain. (+) No nausea, vomiting, diarrhea or constipation. GENITOURINARY: No dysuria, frequency, or change in urination. MUSCULOSKELETAL: No joint or muscle swelling or pain. No neck or back pain. SKIN: No rash NEUROLOGIC: No headache, vertigo, loss of consciousness, or change in strength/ sensation. ENDOCRINE: No increased thirst. No abnormal weight change. HEMATOLOGIC/LYMPHATIC: No anemia, easy bleeding, or history of blood clots. ALLERGIC/IMMUNOLOGIC: No hives or skin allergy. <Sharonda Chamorro - Last Filed: 08/24/17 19:29> *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 - Vital Signs Last Vital Signs Temp Pulse Resp BP Pulse Ox 98.1 F 78 16 104/67 100 08/24/17 17:18 08/24/17 17:18 08/24/17 17:18 08/24/17 17:18 08/24/17 17:18 <Sharonda Chamorro - Last Filed: 08/24/17 19:29> - Vital Signs Last Vital Signs Temp Pulse Resp BP Pulse Ox 98.1 F 78 16 104/67 100 08/24/17 17:18 08/24/17 17:18 08/24/17 17:18 08/24/17 17:18 08/24/17 17:18 - 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 Comments: 08/24/17 18:41 "GENERAL: Awake, alert, and fully oriented, in no acute distress HEAD: No signs of trauma EYES: PERRLA, EOMI, sclera anicteric, conjunctiva clear ENT: Auricles normal inspection, hearing grossly normal, nares patent, oropharynx clear without exudates. Moist mucosa NECK: Nontender, no stepoffs, Normal ROM, supple, no lymphadenopathy, JVD, or masses LUNGS: Breath sounds equal, clear to auscultation bilaterally. No wheezes, and no crackles HEART: Regular rate and rhythm, normal S1 and S2, no murmurs, rubs or gallops ABDOMEN: (+) Suprapubic tenderness. Soft, nontender, normoactive bowel sounds. No guarding, no rebound. No masses : (+) Cervical os closed. No blood visualized. (+) White cottage cheese discharge. No cervical motion tenderness. EXTREMITIES: Normal range of motion, no edema. No clubbing or cyanosis. No cords, erythema, or tenderness NEUROLOGICAL: Cranial nerves II through XII intact. 5/5 strength and sensation in all extremities, Normal speech, normal gait, normal cerebellar function SKIN: Warm, Dry, normal turgor, no rashes or lesions noted." <Jamshid Ku - Last Filed: 08/24/17 20:46> ED Treatment Course - LABORATORY CBC & Chemistry Diagram: 08/24/17 18:20 08/24/17 18:20 - ADDITIONAL ORDERS Additional order review: Laboratory Results 08/24/17 08/24/17 08/24/17 18:20 18:20 17:28 Sodium 139 Potassium 3.7 Chloride 107 Carbon Dioxide 25 Anion Gap 7 L BUN 7 Creatinine 0.4 L Creat Clearance w eGFR > 60 Random Glucose 85 Calcium 8.1 L Total Bilirubin 0.3 D AST 13 L ALT 13 Alkaline Phosphatase 78 Total Protein 6.8 Albumin 3.5 Beta HCG, Quant Urine Color Ltyellow Urine Appearance Clear Urine pH 5.0 Ur Specific [place] 1.015 Urine Protein Negative Urine Glucose (UA) Negative Urine Ketones Negative Urine Blood Negative Urine Nitrite Negative Urine Bilirubin Negative Urine Urobilinogen Negative Ur Leukocyte Esterase Trace Urine WBC (Auto) 6 Urine RBC (Auto) 3 Ur Epithelial Cells Rare Urine Mucus Rare Blood Type O POSITIVE Antibody Screen Negative 08/24/17 17:15 Sodium Potassium Chloride Carbon Dioxide Anion Gap BUN Creatinine Creat Clearance w eGFR Random Glucose Calcium Total Bilirubin AST ALT Alkaline Phosphatase Total Protein Albumin Beta HCG, Quant 32746.1 Urine Color Urine Appearance Urine pH Ur Specific [place] Urine Protein Urine Glucose (UA) Urine Ketones Urine Blood Urine Nitrite Urine Bilirubin Urine Urobilinogen Ur Leukocyte Esterase Urine WBC (Auto) Urine RBC (Auto) Ur Epithelial Cells Urine Mucus Blood Type Antibody Screen 08/24/17 18:20 RBC 4.38 MCV 80.3 MCHC 32.3 RDW 15.6 MPV 7.7 Neutrophils % 60.6 Lymphocytes % 28.1 D Monocytes % 8.3 Eosinophils % 2.3 Basophils % 0.7 <Sharonda Chamorro - Last Filed: 08/24/17 19:29> - LABORATORY CBC & Chemistry Diagram: 08/24/17 18:20 08/24/17 18:20 - ADDITIONAL ORDERS Additional order review: Laboratory Results 08/24/17 08/24/17 17:28 17:15 Beta HCG, Quant 98752.1 Urine Color Ltyellow Urine Appearance Clear Urine pH 5.0 Ur Specific [place] 1.015 Urine Protein Negative Urine Glucose (UA) Negative Urine Ketones Negative Urine Blood Negative Urine Nitrite Negative Urine Bilirubin Negative Urine Urobilinogen Negative Ur Leukocyte Esterase Trace Urine WBC (Auto) 6 Urine RBC (Auto) 3 Ur Epithelial Cells Rare Urine Mucus Rare 08/24/17 18:20 RBC 4.38 MCV 80.3 MCHC 32.3 RDW 15.6 MPV 7.7 Neutrophils % 60.6 Lymphocytes % 28.1 D Monocytes % 8.3 Eosinophils % 2.3 Basophils % 0.7 <Jamshid Ku - Last Filed: 08/24/17 20:46> Medical Decision Making - Medical Decision Making 08/24/17 18:41 32 F @ 8 weeks presenting with L flank and suprapubic pain. Found to have white cottage cheese discharge on exam consistent with candidiasis. Will obtain TVUS to r/o ectopic given pain. Also consider pyelo. - Labs, UA, UCx, T&S - TVUS - Topical Clotrimazole for candidiasis 08/24/17 20:45 TVUS shows IUP with no heartbeat, consistent with demise. Pt informed of results. Pt opting for expectant management at this time. Will DC home with return precautions. Pt to f/u with Dr. Cochran on Sunday. I discussed the physical exam findings, ancillary test results and final diagnoses with the patient. I answered all of the patient's questions. The patient was satisfied with the care received and felt comfortable with the discharge plan and treatment plan. The patient agrees to follow up with the primary care physician within 24-72 hours. <Jamshid Ku - Last Filed: 08/24/17 20:46> *DC/Admit/Observation/Transfer - Attestations Scribe Attestion: 08/24/17 19:29 Documentation prepared by Sharonda Chamorro, acting as medical and health services manager for Jamshid Ku MD. <Sharonda Chamorro - Last Filed: 08/24/17 19:29> - Attestations Physician Attestion: 08/24/17 20:44 I, Dr. Jamshid Ku MD, attest that this document has been prepared under my direction and personally reviewed by me in its entirety. I further attest, that it accurately reflects all work, treatment, procedures and medical decision -making performed by me. <Jamshid Ku - Last Filed: 08/24/17 20:46> Diagnosis at time of Disposition: Miscarriage - Discharge Dispostion Disposition: HOME - Prescriptions Prescriptions: Clotrimazole [Gyne-Lotrimin -] 1 applic VG DAILY 7 Days #1 tube - Referrals Referrals: Bambi Cochran MD [Primary Care Provider] - - Patient Instructions Printed Discharge Instructions: DI for Miscarriage, DI for Vaginal Yeast Infection Additional Instructions: Your ultrasound today showed that your baby does not have a heartbeat, which means your are having a miscarriage. You will likely experience some cramping and passage of blood clots in the coming days. If you experience severe pain, bleeding, fevers, or any other concerning symptoms, return to the ER immediately. You also have a yeast infection. supervisor mold shop the prescription for your medication at the pharmacy and use it as instructed. Walters ultrasonido hoy demostr que walters beb no tiene latido cardaco, lo que significa que est teniendo un aborto espontneo. Probablemente experimentar algunos calambres y el paso de cogulos de hanh en los prximos huitron. Si experimenta dolor nikole, sangrado, fiebre o cualquier otro sntoma preocupante, regrese a la cammy de urgencias inmediatamente. Tambin tienes samantha infeccin de levadura. Recoja la receta de walters medicamento en la farmacia y selo segn las instrucciones. Print Language: TOGOLESE - Post Discharge Activity
[2017-08-24 18:53] LABS: ALBUMIN 3.5 g/dl (3.4-5.0); ALK PHOS 78 U/L (45-117); ANION GAP 7 (8-16); BILIRUBIN,TOTAL 0.3 mg/dL (0.2-1.0); BLOOD UREA NITROGEN 7 mg/dL (7-18); CALCIUM 8.1 mg/dL (8.5-10.1); CHLORIDE 107 mmol/L (98-107); CO2 25 mmol/L (21-32); CREATININE 0.4 mg/dL (0.55-1.02); GLUCOSE,RANDOM 85 mg/dL (74-106); POTASSIUM 3.7 mmol/L (3.5-5.1); SGOT/AST 13 U/L (15-37); SGPT/ALT 13 U/L (12-78); SODIUM 139 mmol/L (136-145); TOT PROT 6.8 g/dl (6.4-8.2)
[2017-08-24 21:10] VITALS: BP 123/89; TEMP 98.6
== END 2017-08-24 21:11 | disposition home or self-care (01) ==
LOC: JER 16:55
DX: O26.891 Other specified pregnancy related conditions, first trimester (principal); O02.1 Missed abortion; Z3A.08 8 weeks gestation of pregnancy
CPT/HCPCS: 36415; 76817-TC; 80053; 81003; 81015; 84702; 85025; 86850; 86900; 86901; 87086; 99283-25

== ENCOUNTER 2017-09-06 12:42 | Day surgery (SDC) | payer OTHER ==
[2017-09-05 10:10] VITALS: BMI 20.6
--- NOTE | 2017-09-06 14:08 | HP ---
Admitting History and Physical - Admission Chief Complaint: failure History of Present Illness: 32 yo @ 10 weeks gestation, diagnosed with Missed . She's scheduled for suction D&C History Source: Patient Limitations to Obtaining History: No Limitations - Past Medical History ...LMP: 06/24/17 ...LMP Comment: REGULAR ...: No (MISSED AB) ...: 2 ...Para: 1 - Past Surgical History Past Surgical History: Yes: None - Smoking History Smoking history: Never smoked Have you smoked in the past 12 months: No - Alcohol/Substance Use Hx Alcohol Use: No History of Substance Use: reports: None - Social History Usual Living Arrangement: Yes: With Spouse History of Recent Travel: No Home Medications - Allergies Allergies/Adverse Reactions: Allergies Allergy/AdvReac Type Severity Reaction Status Date / Time albuterol Allergy Intermediate Verified 09/06/17 13:43 - Home Medications Home Medications: Ambulatory Orders No122/Iron/Folic Acid [ Multi Tablet] 1 each PO DAILY 08/24/17 Family Disease History - Family Disease History Family History: Unremarkable Review of Systems - Review of Systems Constitutional: reports: No Symptoms Eyes: reports: No Symptoms HENT: reports: No Symptoms Neck: reports: No Symptoms Cardiovascular: reports: No Symptoms Respiratory: reports: No Symptoms Gastrointestinal: reports: No Symptoms Genitourinary: reports: Pain Breasts: reports: No Symptoms Reported Neurological: reports: No Symptoms Psychiatric: reports: No Symptoms Pain Intensity: 3 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ination Vital Signs: Vital Signs Temperature 98.3 F 09/06/17 13:18 Pulse Rate 87 09/06/17 13:18 Respiratory Rate 16 09/06/17 13:18 Blood Pressure 124/73 09/06/17 13:18 O2 Sat by Pulse Oximetry (%) 100 09/06/17 13:38 Constitutional: Yes: Well Nourished Eyes: Yes: Conjunctiva Clear HENT: Yes: Atraumatic Neck: Yes: Supple Cardiovascular: Yes: Regular Rate and Rhythm Respiratory: Yes: Regular Gastrointestinal: Yes: Normal Bowel Sounds Musculoskeletal: Yes: WNL Extremities: Yes: WNL Neurological: Yes: Alert, Oriented ...Motor Strength: WNL Psychiatric: Yes: WNL, Alert, Oriented Problem List - Problems (1) Missed with demise before 20 completed weeks of gestation Code(s): O02.1 - MISSED Assessment/Plan Missed Pre op for suction D&C Consent signed Anesthesia to see patient
[2017-09-06] MEDS ORDERED: MIDAZOLAM HCL 2 MG/2 ML SINGLE DOSE VIAL ONE (14:18)
[2017-09-06] MEDS ORDERED: PROPOFOL 20 ML ONE (14:18)
[2017-09-06] MEDS ORDERED: LIDOCAINE HCL/PF 2% SDV 5ML VIAL ONE (14:18)
[2017-09-06] MEDS ORDERED: KETOROLAC TROMETHAMINE 30 MG/1 ML VIAL ONE (14:18)
[2017-09-06] MEDS ORDERED: oxyCODONE HCL 5 MG TABLET PO PRN (14:43)
[2017-09-06] MEDS ORDERED: ONDANSETRON 4 MG/2 ML VIAL IVPUSH PRN (14:43)
[2017-09-06] MEDS ORDERED: ACETAMINOPHEN 1000 MG/100 ML VIAL (NON FORMULARY) IVPB PRN (14:44)
[2017-09-06] MEDS ORDERED: LACTATED RINGERS SOLUTION 1,000 ML IV SCH (14:45)
[2017-09-06] MEDS ORDERED: ACETAMINOPHEN INJECTION 100 ML IVPB ONE (14:56)
--- NOTE | 2017-09-06 15:27 | OP ---
Operative Note - Note: Operative Date: 09/06/17 Pre-Operative Diagnosis: Missed Operation: Suction D&C Findings: Product of conception Post-Operative Diagnosis: Same as Pre-op Surgeon: Bambi Cochran Anesthesia: General Specimens Removed: Product of conception Estimated Blood Loss (mls): 20 Operative Report Dictated: Yes
[2017-09-06 15:34] VITALS: TEMP 97.8
--- NOTE | 2017-09-06 15:46 | OP ---
DATE OF OPERATION: 09/06/2017 PREOPERATIVE DIAGNOSIS: Missed . POSTOPERATIVE DIAGNOSIS: Missed . PROCEDURE: Suction dilatation and curettage. SURGEON: Bambi Cochran MD ANESTHESIA: General. COMPLICATIONS: None. ESTIMATED BLOOD LOSS: 20 mL DESCRIPTION OF PROCEDURE: Patient was taken to the operating room where general anesthesia was administered. Patient was then placed in lithotomy position. She was then prepped and draped in proper sterile fashion. A weighted speculum was placed in the vagina. The anterior lip of the cervix was grasped with a single-tooth tenaculum. Then, the cervical os was then sequentially dilated with Armas dilators. Then, a 10-mm suction curett was then gently introduced into the uterine cavity. The suction device was activated, and the curett rotated to clear the uterus of all products of conception. A sharp curettage was then performed, and the suction curette was then re-introduced to clear the uterus of all remaining products of conception. Then, the instruments were removed. The patient was taken out of lithotomy position. She was taken to PACU in stable condition. PATHOLOGY: Products of conception. Diamante [id number] MTDD
[2017-09-06 17:15] VITALS: BP 102/64; PULSE 83
--- NOTE | 2017-09-10 11:33 | PATH ---
Surgical Pathology Report Patient Name: TOÑO JOYNER Med. Rec. #: [id number] /Age/Gender: 1985 (Age: 32) / F Account: [id number] Location: [facility] Taken: 09/06/2017 Received: 09/07/2017 Reported: 09/10/2017 Physicians: Bambi Cochran M.D. Specimen(s) Received PRODUCTS OF CONCEPTION Clinical History Missed Final Diagnosis UTERINE CONTENTS, EVACUATION: CHORIONIC VILLI CONSISTENT WITH PRODUCTS OF CONCEPTION. Electronically Signed Weston Marcano M.D. Gross Description Received in formalin labeled "products of conception," is a 4.5 x 4.0 x 0.5 cm aggregate of hale brown fragments of soft tissue. Villous tissue is identified. No somatic tissue is identified. A publications sales representative portion is submitted in one cassette. /09/07/2017 saudi09/07/2017
== END 2017-09-06 16:57 | disposition home or self-care (01) ==
LOC: JASU-SURG 12:42
PROVIDERS: ATTEND Obstetrics & Gynecology
PROC: 10D17ZZ Extraction of Products of Conception, Retained, Via Natural or Artificial Opening (ICD-10-PCS; principal; 2017-09-06 14:00)
DX: O02.1 Missed abortion (principal)
CPT/HCPCS: 86850; 86900; 86901; 88305-TC; 94760; J0131

== ENCOUNTER 2018-03-21 11:13 | Emergency (ER) | payer OTHER ==
[2018-03-21 11:30] VITALS: BP 122/80; PULSE 95; TEMP 98.5; BMI 22.1
--- NOTE | 2018-03-21 12:20 | PDOC ---
History of Present Illness - General Chief Complaint: Cold Symptoms Stated Complaint: CONGESTED, HEADACHE Time Seen by Provider: 03/21/18 12:08 History Source: Patient Exam Limitations: No Limitations - History of Present Illness Initial Comments: 03/21/18 12:55 Patient is a 32-year-old female who presents emergency department today for headache and cough. Patient states she is also . She took a home test yesterday which was positive. LMP was 02/19/18. Patient states that she has had her cold-like symptoms for approximately 2 days. She states that she is taking Tylenol with little relief of her symptoms. She also notes a subjective fevers. Patient also states that she feels like she is cramping and " in labor". Denies vaginal bleeding. Past History - Travel Traveled outside of the country in the last 30 days: No Close contact w/someone who was outside of country & ill: No - Past Medical History Allergies/Adverse Reactions: Allergies Allergy/AdvReac Type Severity Reaction Status Date / Time albuterol Allergy Intermediate Verified 09/06/17 13:43 Home Medications: Ambulatory Orders No122/Iron/Folic Acid [ Multi Tablet] 1 each PO DAILY 08/24/17 Anemia: No Asthma: Yes Cancer: No Cardiac Disorders: No CVA: No COPD: No CHF: No Dementia: No Diabetes: No GI Disorders: No Disorders: No HTN: No Hypercholesterolemia: No Liver Disease: No Seizures: No Thyroid Disease: No - Surgical History Abdominal Surgery: No Appendectomy: No Cardiac Surgery: No Cholecystectomy: No Lung Surgery: No Neurologic Surgery: No Orthopedic Surgery: No - Reproductive History (#): 2 Para: 1 Spontaneous : 0 - Immunization History Immunization Up to Date: Yes - Suicide/Smoking/Psychosocial Hx Smoking History: Never smoked Have you smoked in the past 12 months: No Information on smoking cessation initiated: No Hx Alcohol Use: No Drug/Substance Use Hx: No Substance Use Type: None Hx Substance Use Treatment: No Review of Systems - Review of Systems Able to Perform ROS?: Yes Comments:: 03/21/18 12:08 CONSTITUTIONAL: Present: Subjective Fever Absent: diaphoresis, generalized weakness, malaise, loss of appetite HEENT: Present: rhinorrhea, nasal congestion Absent: throat pain, difficulty swallowing , mouth swelling, ear pain, eye pain, visual Changes CARDIOVASCULAR: Absent: chest pain, loss of consciousness, palpitations, irregular heart rate, peripheral edema RESPIRATORY: Present: Cough Absent: shortness of breath, dyspnea with exertion, orthopnea, wheezing, stridor, hemoptysis GASTROINTESTINAL: Present: abdominal pain Absent: abdominal pain, abdominal distension, nausea, vomiting, diarrhea, constipation, melena, hematochezia : Present: (+) home , suprapubic pain. Denies discharge, vaginal bleeding , frequency and urgency, hematuria. SKIN: Absent: rash, itching, pallor NEUROLOGIC: Present: headache Absent: focal weakness or paresthesias, dizziness, unsteady gait, seizure, mental status changes, bladder or bowel incontinence Is the patient limited Faroese proficient: No *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 - Vital Signs Last Vital Signs Temp Pulse Resp BP Pulse Ox 98.5 F 95 H 16 122/80 100 03/21/18 11:28 03/21/18 11:28 03/21/18 11:28 03/21/18 11:28 03/21/18 11:28 - 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 Comments: 03/21/18 12:08 GENERAL: Well developed, well nourished. Awake and alert. No acute distress. HEENT: Normocephalic, atraumatic. PERRLA, EOMI. No conjunctival pallor. Sclera are non- icteric. Moist mucous membranes. Oropharynx is clear. NECK: Supple. Full ROM. No JVD. Carotid pulses 2+ and symmetric, without bruits. No thyromegaly. No lymphadenopathy. CARDIOVASCULAR: Regular rate and rhythm. No murmurs, rubs, or gallops. Distal pulses are 2+ and symmetric. PULMONARY: No evidence of respiratory distress. Lungs clear to auscultation bilaterally. No wheezing, rales or rhonchi. ABDOMINAL: TTP of the suprapubic area. Discomfort to the LLQ and RLQ as well. Soft. Non- distended. No rebound or guarding. No organomegaly. Normoactive bowel sounds. MUSCULOSKELETAL Normal range of motion at all joints. No bony deformities or tenderness. No CVA tenderness. EXTREMITIES: No cyanosis. No clubbing. No edema. No calf tenderness. SKIN: Warm and dry. Normal capillary refill. No rashes. No jaundice. NEUROLOGICAL: Alert, awake, appropriate. Cranial nerves 2-12 intact. No deficits to light touch and temperature in face, upper extremities and lower extremities. No motor deficits in the in face, upper extremities and lower extremities. Normoreflexic in the upper and lower extremities. Normal speech. Toes are down- going bilaterally. Gait is normal without ataxia. PSYCHIATRIC: Cooperative. Good eye contact. Appropriate mood and affect. Medical Decision Making - Medical Decision Making 03/21/18 12:55 Patient is a 32-year-old female who presents to the emergency department today for cold-like symptoms and abdominal pain. Patient is currently 4 weeks by dates. LMP was 02/19/18. Given physical exam findings and history we will transfer to the main ER for further workup of her abdominal pain as well as her . Urine ordered this time. Sign out given to COSTUME DESIGNER Jeannine as well as charge nurse Marylin *DC/Admit/Observation/Transfer Diagnosis at time of Disposition: Head ache Qualifiers: Headache type: unspecified Headache chronicity pattern: unspecified pattern Intractability: not intractable Qualified Code(s): R51 - Headache Abdominal pain Qualifiers: Abdominal location: lower abdomen, unspecified Qualified Code(s): R10.30 - Lower abdominal pain, unspecified Qualifiers: Weeks of gestation: less than 8 weeks Qualified Code(s): Z3A.01 - Less than 8 weeks gestation of - Referrals Referrals: Rehana Che [Primary Care Provider] - - Patient Instructions - Post Discharge Activity
[2018-03-21] MEDS ORDERED: ACETAMINOPHEN 325 MG TABLET (FP) PO ONE (12:21)
[2018-03-21] MEDS ORDERED: ACETAMINOPHEN 325 MG TABLET (FP) ONE (12:33)
[2018-03-21 12:50] LABS: HCG,QUALITATIVE URINE Positive
[2018-03-21 12:55] LABS: URINE APPEARANCE CLEAR; URINE BILIRUBIN NEGATIVE (<2.0 mg/dL); URINE COLOR LTYELLOW; URINE GLUCOSE (UA) NEGATIVE (NEGATIVE); URINE KETONE NEGATIVE (NEGATIVE); URINE LEUK ESTERASE 1+ (NEGATIVE); URINE NITRITE NEGATIVE (NEGATIVE); URINE PROTEIN NEGATIVE (NEGATIVE); URINE UROBILINOGEN NEGATIVE mg/dL (0.2-1.0)
[2018-03-21 13:01] LABS: EPI CELLS RARE /HPF (FEW); URINE MUCUS RARE
--- NOTE | 2018-03-21 13:19 | PDOC ---
*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 - Vital Signs Last Vital Signs Temp Pulse Resp BP Pulse Ox 98.5 F 95 H 16 122/80 100 03/21/18 11:28 03/21/18 11:28 03/21/18 11:28 03/21/18 11:28 03/21/18 11:28 ED Treatment Course - LABORATORY CBC & Chemistry Diagram: 03/21/18 13:51 - ADDITIONAL ORDERS Additional order review: Laboratory Results 03/21/18 12:17 Urine Color Ltyellow Urine Appearance Clear Urine pH 6.0 Ur Specific [place] 1.018 Urine Protein Negative Urine Glucose (UA) Negative Urine Ketones Negative Urine Blood Negative Urine Nitrite Negative Urine Bilirubin Negative Urine Urobilinogen Negative Ur Leukocyte Esterase 1+ H Urine WBC (Auto) 5-10 Urine RBC (Auto) 0-2 Ur Epithelial Cells Rare Urine Mucus Rare Urine HCG, Qual Positive - RADIOLOGY Radiology Studies Ordered: Category Date Time Status TRANSVAGINAL US PREG [US] Stat Ultrasound 03/21/18 13:17 Ordered - Medications Given in the ED: ED Medications Discontinued Medications Generic Name Dose Route Start Last Admin Trade Name Frances PRN Reason Stop Dose Admin Acetaminophen 650 mg 03/21/18 12:21 03/21/18 12:36 Tylenol - PO 03/21/18 12:22 650 mg ONCE ONE Administration Medical Decision Making - Medical Decision Making 03/21/18 13:26 Patient received from TAMEKA Mir in fast track. Briefly, this is a healthy 32- year-old female, LMP 9/5, A1 (spontaneous at approximately 10 weeks requiring D&C) who presents with 2 days of lower abdominal cramping. Cramping is localized to the right side. It is intermittent. It is not associated with any vaginal bleeding, discharge, dysuria, or nausea. She has not yet had an ultrasound for this . She also reports cold symptoms ( cough and congestion). She is not been taking any medications other than vitamins. REVIEW OF SYSTEMS: GENERAL/CONSTITUTIONAL: No fever or chills. No weakness. No weight change. HEAD, EYES, EARS, NOSE AND THROAT: Nasal congestion. No sore throat. CARDIOVASCULAR: No chest pain or palpitations. RESPIRATORY: Dry cough. No wheezing or shortness of breath. GASTROINTESTINAL: No nausea, vomiting, diarrhea or constipation. GENITOURINARY: See HPI. MUSCULOSKELETAL: No joint or muscle swelling or pain. No neck or back pain. SKIN: No rash or easy bruising. NEUROLOGIC: Mild, generalized headache. vertigo, loss of consciousness, or loss of sensation. PSYCHIATRIC: No depression or anxiety. ENDOCRINE: No increased thirst. No abnormal weight change. HEMATOLOGIC/LYMPHATIC: No anemia, easy bleeding, or history of blood clots. ALLERGIC/IMMUNOLOGIC: No hives or skin allergy. No latex allergy. PHYSICAL EXAM: GENERAL: The patient is awake, alert, and fully oriented, in no acute distress. HEAD: Normal with no signs of trauma. ENT: Pupils equal, round and reactive to light, extraocular movements intact, sclera anicteric, conjunctiva clear. Neck supple. LUNGS: Clear to auscultation bilaterally. Normal excursion. No respiratory distress or use of accessory muscles. CV: RRR, S1/S2, no MRG. Cap refill < 2 sec. ABDOMEN: Soft, non-distended, non-tender. EXTREMITIES: Normal range of motion, no edema. NEUROLOGICAL: Normal speech, normal gait. CN II-XII grossly intact. PSYCH: Normal mood, normal affect. SKIN: Warm, dry, normal turgor, no rashes or lesions noted. TEACHING MANAGER: Normal external exam. Cervix long, closed, posterior. No CMT or adnexal tenderness. A/P: 32-year-old female with cold symptoms as well as pelvic pain and first trimester . 1. Follow up UA 2. Send labs including CBC, beta hCG, type and screen 3. Transvaginal ultrasound to confirm IUP/rule out ectopic given unilateral cramping 4. Acetaminophen for pain 03/21/18 15:32 Bhcg 1049 U/s with no evidence of viable IUP. Will advise patient to return for repeat bhcg and u/s in 2 days. Patient's pain is controlled. Will treat for UTI (5-10 WBC) given . *DC/Admit/Observation/Transfer Diagnosis at time of Disposition: Head ache Qualifiers: Headache type: unspecified Headache chronicity pattern: unspecified pattern Intractability: not intractable Qualified Code(s): R51 - Headache Abdominal pain Qualifiers: Abdominal location: lower abdomen, unspecified Qualified Code(s): R10.30 - Lower abdominal pain, unspecified Qualifiers: Weeks of gestation: less than 8 weeks Qualified Code(s): Z3A.01 - Less than 8 weeks gestation of - Discharge Dispostion Disposition: HOME Condition at time of disposition: Stable - Prescriptions Prescriptions: Acetaminophen [Tylenol] 650 mg PO Q6H PRN #30 tablet MDD 4 PRN Reason: Pain Nitrofurantoin Macrocrystal [Nitrofurantoin] 100 mg PO BID #10 capsule - Referrals Referrals: Rehana Che [Primary Care Provider] - - Patient Instructions Printed Discharge Instructions: Ectopic , DI for Pelvic Pain Additional Instructions: You are being treated with nitrofurantoin for UTI. We were not able to see a on your ultrasound today. It is important that you return here in two days for repeat blood work an ultrasound, otherwise we cannot be sure that you do not have an ectopic , a life-threatening condition (information enclosed). Return sooner for worsening pain, vaginal bleeding, or any other concerning symptoms. - Post Discharge Activity Forms/Work/School Notes: Back to Work
[2018-03-21 14:02] LABS: BASO % 0.6 % (0-2.0); EOS % 2.9 % (0-4.5); HEMATOCRIT 37.7 % (32.4-45.2); MCH 24.9 pg (25.7-33.7); MCHC 31.8 g/dl (32.0-36.0); MEAN CELL VOLUME 78.4 fl (80-96); MEAN PLT VOLUME 7.8 fl (7.5-11.1); MONO % 7.2 % (3.8-10.2); NEUT % 70.3 % (42.8-82.8); PLATELET COUNT 345 K/MM3 (134-434); RBC 4.81 M/mm3 (3.60-5.2); RDW 16.5 % (11.6-15.6); WHITE BLOOD COUNT 8.4 K/mm3 (4.0-10.0)
== END 2018-03-21 15:55 | disposition home or self-care (01) ==
LOC: JERFT 11:13 → JER 11:13
DX: O26.891 Other specified pregnancy related conditions, first trimester (principal); R10.30 Lower abdominal pain, unspecified; R51 Headache; Z3A.01 Less than 8 weeks gestation of pregnancy
CPT/HCPCS: 36415; 76817-TC; 81003; 81015; 84702; 84703; 85025; 86850; 86900; 86901; 87086; 99282-25

== ENCOUNTER 2018-03-23 15:09 | Emergency (ER) | payer OTHER ==
[2018-03-23 15:20] VITALS: PULSE 87; TEMP 98; BMI 26.6
--- NOTE | 2018-03-23 15:45 | PDOC ---
History of Present Illness - General Chief Complaint[place] [facility] [place] Complaint: REPEAT BETA HCG Time Seen by Provider: 03/23/18 15:31 History Source: Patient Exam Limitations: No Limitations - History of Present Illness Initial Comments: CHIEF COMPLAINT: 32 y/o female here for beta check. HISTORY OF PRESENT ILLNESS: Patient was seen 2 days ago for abdominal pain. She is , had a beta and an ultrasound which did not show an IUP. She was started on macrobid for UTI and was told to return today for repeat beta and ultrasound. Patient denies abd pain and vaginal bleeding but states she does have some diarrhea. Vital signs on arrival are within normal limits. REVIEW OF SYSTEMS: GENERAL/CONSTITUTIONAL: No fever/chills. No weakness. No weight change. HEAD, EYES, EARS, NOSE AND THROAT: No change in vision. No ear pain or discharge. No sore throat. CARDIOVASCULAR: No chest pain or shortness of breath. RESPIRATORY: No cough, wheezing, or hemoptysis. GASTROINTESTINAL: +diarrhea. No nausea, vomiting. No vaginal bleeding or discharge. GENITOURINARY: No dysuria, frequency, or change in urination. MUSCULOSKELETAL: No joint or muscle swelling or pain. No neck or back pain. SKIN: No rash or easy bruising. NEUROLOGIC: No headache, vertigo, loss of consciousness, or loss of sensation. PHYSICAL EXAM: GENERAL: The patient is awake, alert, and fully oriented, in no acute distress. HEAD: Normal with no signs of trauma. ENT: Pupils equal, round and reactive to light, extraocular movements intact, sclera anicteric, conjunctiva clear. Neck supple. LUNGS: Clear to auscultation bilaterally. Normal excursion. No respiratory distress or use of accessory muscles. CV: RRR, S1/S2, no MRG. Cap refill < 2 sec. ABDOMEN: Soft, non-distended, non-tender even to deep palpation, no hepatomegaly or splenomegaly, no masses. EXTREMITIES: Normal range of motion, no edema. NEUROLOGICAL: Normal speech, normal gait. CN II-XII grossly intact. SKIN: Warm, dry, normal turgor, no rashes or lesions noted. Past History - Past Medical History Allergies/Adverse Reactions: Allergies Allergy/AdvReac Type Severity Reaction Status Date / Time albuterol Allergy Intermediate Verified 03/23/18 15:17 Home Medications: Ambulatory Orders NK [No Known Home Medication] 03/23/18 Anemia: No Asthma: Yes Cancer: No Cardiac Disorders: No CVA: No COPD: No CHF: No Dementia: No Diabetes: No GI Disorders: No Disorders: No HTN: No Hypercholesterolemia: No Liver Disease: No Seizures: No Thyroid Disease: No - Surgical History Abdominal Surgery: No Appendectomy: No Cardiac Surgery: No Cholecystectomy: No Lung Surgery: No Neurologic Surgery: No Orthopedic Surgery: No - Reproductive History (#): 2 Para: 1 Spontaneous : 0 - Immunization History Immunization Up to Date: Yes - Suicide/Smoking/Psychosocial Hx Smoking History: Never smoked Have you smoked in the past 12 months: No Hx Alcohol Use: No Drug/Substance Use Hx: No Substance Use Type: None Hx Substance Use Treatment: No *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 - Vital Signs Last Vital Signs Temp Pulse Resp BP Pulse Ox 98.0 F 87 18 96/47 L 99 03/23/18 15:18 03/23/18 15:18 03/23/18 15:18 03/23/18 15:18 03/23/18 15:18 Medical Decision Making - Medical Decision Making A/P: 32 y/o female here for repeat beta hcg and ultrasound to confirm . She denies abdominal pain. She does admit to diarrhea. Plan is as follows: 1. beta hcg 2. transvaginal ultrasound beta - 2700 Transvaginal Ultrasound IMPRESSION: Abnormal cystic structure in the fundus of the uterus, could be early gestational sac or pseudosac. No adnexal free fluid. No evidence of ectopic at this time. Patient remains asymptomatic without abdominal pain or vaginal bleeding. Due to the odd appearance of the structure in the fundus of the uterus, and technically no confirmed IUP yet, will have the patient return in 48 hours for repeat HCG and ultrasound. Patient instructed to return to the ER prior to 48 hours if she develops abdominal pain, vaginal bleeding, fever or any other concerning symptoms The patient verbalizes understanding of all instructions, has no further questions and is awaiting discharge. *DC/Admit/Observation/Transfer Diagnosis at time of Disposition: Qualifiers: Weeks of gestation: less than 8 weeks Qualified Code(s): Z3A.01 - Less than 8 weeks gestation of - Discharge Dispostion Disposition: HOME Condition at time of disposition: Good - Referrals Referrals: Rehana Che [Primary Care Provider] - Mauricio Waldron MD [Staff Physician] - - Patient Instructions Additional Instructions: Discharge Instructions: -We cannot see a baby on your ultrasound yet -We are concerned you may have an ectopic , which can be life threatening -You must return to the ER in 2 days to have repeat blood work and ultrasound -Please come to the ER immediately if you develop abdominal pain or vaginal bleeding Instrucciones de descarga: -No podemos antoinette a un beb en gasca ultrasonido todava. -Estamos preocupados de que pueda tener un embarazo ectpico, que puede ser potencialmente mortal. -Debe regresar a la cammy de emergencias en 2 huitron para que le repitan el anlisis de hanh y la ecografa -Por favor, acuda a la cammy de emergencias inmediatamente si presenta dolor abdominal o sangrado vaginal. - Post Discharge Activity
[2018-03-23 19:36] VITALS: BP 122/79
== END 2018-03-23 19:38 | disposition home or self-care (01) ==
LOC: JERFT 15:09
DX: O36.80X0 Pregnancy with inconclusive fetal viability, not applicable or unspecified (principal); Z3A.01 Less than 8 weeks gestation of pregnancy
CPT/HCPCS: 36415; 76817-TC; 84702; 99281-25

== ENCOUNTER 2018-04-30 15:25 | Emergency (ER) | payer OTHER ==
--- NOTE | 2018-04-30 15:43 | PDOC ---
Rapid Medical Evaluation Chief Complaint: Diarrhea Time Seen by Provider: 04/30/18 15:39 Medical Evaluation: Allergies Allergy/AdvReac Type Severity Reaction Status Date / Time albuterol Allergy Intermediate Verified 03/23/18 15:17 I have performed a brief in-person evaluation of this patient. The patient presents with a chief complaint of: 10 weeks ; diarrhea x 2 months; going 4 times per day. LMP 02/20/18. [id number]. vaginal spotting today Pertinent physical exam findings: none I have ordered the following: labs, ultrasound The patient will proceed to the ED for further evaluation. Discharge Disposition - Diagnosis Vaginal bleeding affecting early , Diarrhea - Referrals Referrals: Rehana Che [Primary Care Provider] - - Patient Instructions - Post Discharge Activity
[2018-04-30 15:44] VITALS: BMI 21.9
[2018-04-30 16:07] LABS: BASO % 0.7 % (0-2.0); EOS % 1.2 % (0-4.5); HEMATOCRIT 39.1 % (32.4-45.2); HEMOGLOBIN 12.4 GM/dL (10.7-15.3); LYMPH % 22.9 % (8-40); MCH 26.2 pg (25.7-33.7); MCHC 31.8 g/dl (32.0-36.0); MEAN CELL VOLUME 82.5 fl (80-96); MEAN PLT VOLUME 7.9 fl (7.5-11.1); NEUT % 68.2 % (42.8-82.8); PLATELET COUNT 286 K/MM3 (134-434); RBC 4.75 M/mm3 (3.60-5.2); RDW 17.1 % (11.6-15.6); WHITE BLOOD COUNT 8.9 K/mm3 (4.0-10.0)
--- NOTE | 2018-04-30 16:16 | PDOC ---
History of Present Illness - General Chief Complaint: Diarrhea Stated Complaint: DIARRHEA, 10 WKS Time Seen by Provider: 04/30/18 15:39 - History of Present Illness Initial Comments: 32yo A1 currently ten weeks (LMP 02/20/18) presenting with no significant PMH presenting with vaginal spotting. Patient reports that she has a confirmed IUP. Vaginal bleeding is scant, noted as a few spots noted upon wiping. Patient reports diffuse abdominal pain which she associates with diarrhea that she has had for two months. She now has diarrhea up to four times a day. She has not felt contractions. History of but no other abdominal surgeries. No dysuria, hematuria, or urgency. Denies fever, chills, chest pain, shortness of breath, nausea, or vomiting. Past History - Past Medical History Allergies/Adverse Reactions: Allergies Allergy/AdvReac Type Severity Reaction Status Date / Time albuterol Allergy Intermediate Verified 04/30/18 15:44 Home Medications: Ambulatory Orders NK [No Known Home Medication] 03/23/18 Anemia: No Asthma: Yes Cancer: No Cardiac Disorders: No CVA: No COPD: No CHF: No Dementia: No Diabetes: No GI Disorders: No Disorders: No HTN: No Hypercholesterolemia: No Liver Disease: No Seizures: No Thyroid Disease: No - Surgical History Abdominal Surgery: No Appendectomy: No Cardiac Surgery: No Cholecystectomy: No Lung Surgery: No Neurologic Surgery: No Orthopedic Surgery: No - Reproductive History (#): 2 Para: 1 Spontaneous : 0 - Immunization History Immunization Up to Date: Yes - Suicide/Smoking/Psychosocial Hx Smoking History: Never smoked Have you smoked in the past 12 months: No Information on smoking cessation initiated: No Hx Alcohol Use: No Drug/Substance Use Hx: No Substance Use Type: None Hx Substance Use Treatment: No Review of Systems - Review of Systems Comments:: Constitutional: no fever, no chills HEENT: no throat pain, no dysphagia Cardiovascular: no chest pain, no palpitations Respiratory: no cough, no shortness of breath Gastrointestinal: +abdominal pain, +nausea, +vomiting, +diarrhea Genitourinary: no dysuria, no frequency Musculoskeletal: no myalgia, no arthralgia Skin: no rash, no itching Neurologic: no headache, no dizziness *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 - Vital Signs Last Vital Signs Temp Pulse Resp BP Pulse Ox 95 H 16 127/88 100 04/30/18 15:40 04/30/18 15:40 04/30/18 15:40 04/30/18 15:40 - 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 Comments: General: Awake, alert, and fully oriented, in no acute distress Head: No signs of trauma Eyes: EOMI, sclera anicteric ENT: Moist mucus membranes Neck: Normal ROM, supple Lungs: Lungs clear, Normal breath sounds Cardio: Regular rhythm, S1 and S2 present Abdomen: Diffuse abdominal tenderness elicited upon palpation; Soft; No guarding , no rebound, no masses Extremities: Normal range of motion, Distal pulses present SKIN: Warm, Dry, normal turgor Neurologic: Cranial nerves II through XII grossly intact. Normal speech Pelvic: External genitalia without erythema, exudate or discharge. Vaginal vault is without discharge. Cervix is of normal color without lesion. The os is closed. There is no bleeding noted. Uterus is noted to be of normal size and nontender. No cervical motion tenderness is seen. No masses are palpated. ED Treatment Course - LABORATORY CBC & Chemistry Diagram: 04/30/18 15:58 04/30/18 15:58 - ADDITIONAL ORDERS Additional order review: 04/30/18 15:58 RBC 4.75 MCV 82.5 MCHC 31.8 L RDW 17.1 H MPV 7.9 Neutrophils % 68.2 Lymphocytes % 22.9 D Monocytes % 7.0 Eosinophils % 1.2 Basophils % 0.7 Medical Decision Making - Medical Decision Making 32yo A1 currently ten weeks (LMP 02/20/18) presenting with no significant PMH presenting with vaginal spotting. -Labs: No leukocytosis or anemia. Normal UA. B-hcg appropriate for level of gestation. -TVUS: Single viable intrauterine gestation at approximately 9 weeks 5 days. 1.6 cm right ovarian cyst. -Tylenol -1L NS -Patient will follow-up with her field horticultural specialty grower. Discharged. 05/02/18 20:42 *DC/Admit/Observation/Transfer Diagnosis at time of Disposition: Vaginal bleeding affecting early , Diarrhea - Discharge Dispostion Disposition: HOME - Referrals Referrals: Rehana Che [Primary Care Provider] - - Patient Instructions Printed Discharge Instructions: DI for Vaginal Bleeding During Additional Instructions: You were seen in the Emergency Department for vaginal bleeding. Blood work and ultrasound was normal. Follow-up with your field horticultural specialty grower this week to discuss this ED visit and to further assess your vaginal bleeding. Return to the Emergency Department if you experience: -heavy bleeding (more than two pads per hour for two hours) -severe pain -lightheadedness -shortness of breath -high fever -any other concerning symptoms === Usted fue atendido en el Departamento de Emergencias por sangrado vaginal. El anlisis de hanh y la ecografa fueron normales. Hemant un seguimiento con gasca gineclogo / obstetra esta semana para hablar sobre esta visita a la cammy de urgencias y evaluar gasca sangrado vaginal. Regrese al Departamento de Emergencias si experimenta: -sangrado abundante (ms de dos compresas por hora sea dos horas) -dolor nikole -aturdimiento -cortitud de aliento -fiebre adamaris -Cualquier otro sntoma relativo. - Post Discharge Activity
[2018-04-30 17:07] LABS: URINE APPEARANCE CLOUDY; URINE BILIRUBIN NEGATIVE (<2.0 mg/dL); URINE COLOR YELLOW; URINE GLUCOSE (UA) NEGATIVE (NEGATIVE); URINE KETONE NEGATIVE (NEGATIVE); URINE LEUK ESTERASE 1+ (NEGATIVE); URINE NITRITE NEGATIVE (NEGATIVE); URINE PROTEIN NEGATIVE (NEGATIVE); URINE UROBILINOGEN NEGATIVE mg/dL (0.2-1.0)
[2018-04-30] MEDS ORDERED: ACETAMINOPHEN 1000 MG/100 ML VIAL (NON FORMULARY) IVPB ONE (17:11)
[2018-04-30] MEDS ORDERED: SODIUM CHLORIDE 1,000 ML IV STA (17:11)
[2018-04-30 17:15] LABS: ALBUMIN 3.5 g/dl (3.4-5.0); ALK PHOS 85 U/L (45-117); ANION GAP 10 MMOL/L (8-16); BILIRUBIN,TOTAL 0.4 mg/dL (0.2-1); BLOOD UREA NITROGEN 6 mg/dL (7-18); CALCIUM 8.5 mg/dL (8.5-10.1); CHLORIDE 105 mmol/L (98-107); CO2 23 mmol/L (21-32); CREATININE 0.4 mg/dL (0.55-1.3); GLUCOSE,RANDOM 83 mg/dL (74-106); POTASSIUM 3.9 mmol/L (3.5-5.1); SGOT/AST 22 U/L (15-37); SGPT/ALT 27 U/L (13-61); SODIUM 138 mmol/L (136-145)
[2018-04-30] MEDS ORDERED: ACETAMINOPHEN INJECTION 100 ML IVPB ONE (17:37)
--- NOTE | 2018-04-30 18:03 | PDOC ---
Attending Attestation - Resident Resident Name: María Paz - ED Attending Attestation I have performed the following: I have examined & evaluated the patient, The case was reviewed & discussed with the resident, I agree w/resident's findings & plan, Exceptions are as noted - HPI HPI: 04/30/18 18:21 this female had complaint of vaginal spotting today - Physicial Exam PE: 04/30/18 18:21 slender 32 yo female in no acute distress head ncat neck supple lungs cta b.l cvs [id number] abd nontender vaginal exam dome by Dr Paz ext no edema neuro axox3,ambulating with ease - Medical Decision Making 04/30/18 18:39 pelvic US 9 weeks 5 days, FHT 157, rt ovarain cyst imp threatened AB, f/u with ob/.matcher
[2018-04-30 18:07] LABS: CALCIUM OXALATE CRYSTALS FEW /hpf (NONE SEEN); EPI CELLS RARE /HPF (FEW); URINE MUCUS MODERATE
[2018-04-30 18:43] VITALS: BP 109/79; PULSE 79
== END 2018-04-30 18:43 | disposition home or self-care (01) ==
LOC: JER 15:25
PROC: 3E033NZ Introduction of Analgesics, Hypnotics, Sedatives into Peripheral Vein, Percutaneous Approach (ICD-10-PCS; principal; 2018-04-30)
DX: O26.891 Other specified pregnancy related conditions, first trimester (principal); O20.0 Threatened abortion; O34.81 Maternal care for other abnormalities of pelvic organs, first trimester; N83.291 Other ovarian cyst, right side; Z3A.09 9 weeks gestation of pregnancy
CPT/HCPCS: 36415; 76817-TC; 80053; 81003; 81015; 84702; 85025; 86850; 86900; 86901; 87086; 96374; 99283-25; J0131; J7030

== ENCOUNTER 2018-06-06 13:19 | Emergency (ER) | payer OTHER ==
[2018-06-06] MEDS ORDERED: SODIUM CHLORIDE 1,000 ML IV STA ×2 (13:40→18:09)
--- NOTE | 2018-06-06 13:40 | PDOC ---
Rapid Medical Evaluation Medical Evaluation: Allergies Allergy/AdvReac Type Severity Reaction Status Date / Time albuterol Allergy Intermediate Verified 04/30/18 15:44 I have performed a brief in-person evaluation of this patient. The patient presents with a chief complaint of: (hx of 1 ); Is 15 weeks , c/o lower abd discomfort, NBNB emesis from 4 days ago along with mild CP and SOB; denies vaginal bleeding Pertinent physical exam findings: In NAD, abdomen soft, gravid abdomen I have ordered the following: Labs, IVF The patient will proceed to the ED for further evaluation. 06/06/18 13:36
[2018-06-06 13:42] VITALS: BMI 24.1
[2018-06-06] MEDS ORDERED: ONDANSETRON 4 MG/2 ML VIAL IVPUSH ONE (13:47)
[2018-06-06] MEDS ORDERED: ONDANSETRON 4 MG/2 ML VIAL ONE (14:34)
--- NOTE | 2018-06-06 14:35 | PDOC ---
*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 - Vital Signs Last Vital Signs Temp Pulse Resp BP Pulse Ox 98.2 F 102 H 16 121/76 97 06/06/18 13:38 06/06/18 13:38 06/06/18 13:38 06/06/18 13:38 06/06/18 13:38 ED Treatment Course - LABORATORY CBC & Chemistry Diagram: 06/06/18 14:20 06/06/18 14:20 Medical Decision Making - Medical Decision Making 06/06/18 14:35 Pt seen by Midlevel Provider under my direct supervision Pt interviewed and examined US pending UA pending Signed out to overnight attending I agree with plan as outlined by Midlevel Provider 06/07/18 11:46 *DC/Admit/Observation/Transfer Diagnosis at time of Disposition: UTI (urinary tract infection) during - Discharge Dispostion Disposition: HOME Condition at time of disposition: Stable - Prescriptions Prescriptions: Cephalexin Monohydrate [Keflex -] 500 mg PO BID #20 capsule - Referrals Referrals: Rehana Che [Primary Care Provider] - - Patient Instructions Additional Instructions: Rest, drink lots of fluids: Teas, water, soups Avoid contact with others until fevers and symptoms resolved Lots of handwashing and good hygiene Continue [id number] medications for symptomatic relief Tylenol or Motrin for fever and pain Continue all of antibiotics until completed Followup with private physician in one week for repeat urinalysis/reevaluation Return to emergency department for worsened symptoms, fevers, dehydration Descpanchitoe, danyelle muchos lquidos: Ts, agua, sopas Evite el contacto con otros hasta que las fiebres y los sntomas se resuelvan Un montn de lavado de jessica y buena higiene Contine los medicamentos sin receta para el alivio sintomtico Tylenol o Motrin para la fiebre y el dolor Continuar todos los antibiticos hasta completarse Seguimiento con mdico privado en samantha semana para repetir anlisis de orina / reevaluacin Volver al servicio de urgencias por sntomas empeorados, fiebres, deshidratacin - Post Discharge Activity
[2018-06-06] MEDS ORDERED: ACETAMINOPHEN 500 MG TABLET (FP) PO ONE (15:06)
[2018-06-06] MEDS ORDERED: PANTOPRAZOLE SODIUM 40 MG in SODIUM CHLORIDE 100 ML IVPB ONE (15:06)
[2018-06-06 15:11] LABS: BASO % 0.3 % (0-2.0); EOS % 0.7 % (0-4.5); HEMATOCRIT 35.3 % (32.4-45.2); HEMOGLOBIN 12.1 GM/dL (10.7-15.3); LYMPH % 19.5 % (8-40); MCH 27.9 pg (25.7-33.7); MCHC 34.2 g/dl (32.0-36.0); MEAN CELL VOLUME 81.5 fl (80-96); MEAN PLT VOLUME 7.9 fl (7.5-11.1); MONO % 6.5 % (3.8-10.2); PLATELET COUNT 297 K/MM3 (134-434); RBC 4.33 M/mm3 (3.60-5.2); RDW 14.6 % (11.6-15.6); WHITE BLOOD COUNT 7.4 K/mm3 (4.0-10.0)
[2018-06-06 15:20] LABS: ANION GAP 7 MMOL/L (8-16); BLOOD UREA NITROGEN 5 mg/dL (7-18); CALCIUM 8.5 mg/dL (8.5-10.1); CHLORIDE 105 mmol/L (98-107); CO2 25 mmol/L (21-32); CREATININE 0.5 mg/dL (0.55-1.3); GLUCOSE,RANDOM 98 mg/dL (74-106); POTASSIUM 3.7 mmol/L (3.5-5.1); SODIUM 137 mmol/L (136-145)
[2018-06-06] MEDS ORDERED: PANTOPRAZOLE SODIUM 40 MG/100 ML BAG IVPB ONE (15:47)
[2018-06-06] MEDS ORDERED: ACETAMINOPHEN 325 MG TABLET (FP) ONE (15:47)
--- NOTE | 2018-06-06 16:40 | PDOC ---
History of Present Illness - General Chief Complaint: Nausea/Vomiting Stated Complaint: CHEST PAIN Time Seen by Provider: 06/06/18 14:30 History Source: Patient Exam Limitations: No Limitations - History of Present Illness Travel History: No Initial Comments: 06/06/18 15:40 32-year-old female currently 15 weeks presents to the ED with complaints of nausea since Sunday followed by 3 episodes of vomiting causing her now burning to her epigastric region and decreased appetite. Patient also complaining of mild frontal headache without back pain, fever, chills, diarrhea or dysuria. Patient is complaining of lower abdominal cramping and states is followed by Dr. Cochran who had did an ultrasound approximately 4 weeks ago. Patient has no complaints of vaginal bleeding, vaginal discharge, recent change in diet, or recent sick contacts. Timing/Duration: reports: intermittent Quality: reports: mild, cramping Abdominal Pain Onset Location: reports: suprapubic Pain Radiation: reports: no radiation Activities at Onset: reports: none Aggravating Factors: improves with: None Alleviating Factors: improves with: None Past History - Travel Traveled outside of the country in the last 30 days: No - Past Medical History Allergies/Adverse Reactions: Allergies Allergy/AdvReac Type Severity Reaction Status Date / Time albuterol Allergy Intermediate Verified 06/06/18 13:37 Home Medications: Ambulatory Orders Cephalexin Monohydrate [Keflex -] 500 mg PO BID #20 capsule 06/06/18 Anemia: No Asthma: Yes Cancer: No Cardiac Disorders: No CVA: No COPD: No CHF: No Dementia: No Diabetes: No GI Disorders: No Disorders: No HTN: No Hypercholesterolemia: No Liver Disease: No Seizures: No Thyroid Disease: No - Surgical History Abdominal Surgery: No Appendectomy: No Cardiac Surgery: No Cholecystectomy: No Lung Surgery: No Neurologic Surgery: No Orthopedic Surgery: No - Reproductive History Is Patient Now?: Yes (#): 3 Para: 1 Spontaneous : 0 - Immunization History Immunization Up to Date: Yes - Suicide/Smoking/Psychosocial Hx Smoking History: Never smoked Have you smoked in the past 12 months: No Hx Alcohol Use: No Drug/Substance Use Hx: No Substance Use Type: None Hx Substance Use Treatment: No Patient Lives Alone: No Lives with/in: spouse/SO Review of Systems - Review of Systems Able to Perform ROS?: Yes Constitutional: No: Symptoms Reported HEENTM: No: Symptoms Reported Respiratory: No: Symptoms reported Cardiac (ROS): No: Symptoms Reported ABD/GI: Yes: Nausea, Poor Appetite, Poor Fluid Intake, Vomiting, Abdominal cramping. No: Constipated, Diarrhea : No: Symptoms Reported Musculoskeletal: No: Symptoms Reported Integumentary: No: Symptoms Reported Neurological: Yes: Headache Endocrine: No: Symptoms Reported Hematologic/Lymphatic: No: Symptoms Reported *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 - Vital Signs Last Vital Signs Temp Pulse Resp BP Pulse Ox 98.2 F 102 H 16 121/76 97 06/06/18 13:38 06/06/18 13:38 06/06/18 13:38 06/06/18 13:38 06/06/18 13:38 - 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 General Appearance: Yes: Nourished, Appropriately Dressed. No: Apparent Distress HEENT: positive: EOMI, PJ, TMs Normal, Pharynx Normal. negative: Pale Conjunctivae Neck: positive: Supple Respiratory/Chest: positive: Lungs Clear, Normal Breath Sounds. negative: Respiratory Distress, Accessory Muscle Use Cardiovascular: positive: Regular Rhythm, Regular Rate. negative: Murmur Gastrointestinal/Abdominal: positive: Normal Bowel Sounds (X4, gravid abd). negative: Tenderness Musculoskeletal: negative: CVA Tenderness Extremity: positive: Normal Capillary Refill. negative: Pedal Edema Integumentary: positive: Normal Color, Warm, Moist Neurologic: positive: Motor Strength 5/5 (ambulatory) Moderate Sedation - Procedure Monitoring Vital Signs: Procedure Monitoring Vital Signs Temperature 98.2 F 06/06/18 13:38 Pulse Rate 102 H 06/06/18 13:38 Respiratory Rate 16 06/06/18 13:38 Blood Pressure 121/76 06/06/18 13:38 O2 Sat by Pulse Oximetry (%) 97 06/06/18 13:38 ED Treatment Course - LABORATORY CBC & Chemistry Diagram: 06/06/18 14:20 06/06/18 14:20 - ADDITIONAL ORDERS Additional order review: Laboratory Results 06/06/18 14:20 Sodium 137 Potassium 3.7 Chloride 105 Carbon Dioxide 25 Anion Gap 7 L BUN 5 L Creatinine 0.5 L Creat Clearance w eGFR > 60 Random Glucose 98 Calcium 8.5 Beta HCG, Quant 21087.0 06/06/18 14:20 RBC 4.33 MCV 81.5 MCHC 34.2 RDW 14.6 D MPV 7.9 Neutrophils % 73.0 Lymphocytes % 19.5 Monocytes % 6.5 Eosinophils % 0.7 Basophils % 0.3 - Medications Given in the ED: ED Medications Discontinued Medications Generic Name Dose Route Start Last Admin Trade Name Frances PRN Reason Stop Dose Admin Acetaminophen 975 mg 06/06/18 15:06 06/06/18 15:53 Tylenol - PO 06/06/18 15:07 975 mg ONCE ONE Administration Sodium Chloride 1,000 mls @ 1,000 mls/hr 06/06/18 13:40 06/06/18 14:45 Normal Saline - IV 06/06/18 14:39 1,000 mls/hr ASDIR STA Administration Pantoprazole Sodium 40 mg/ 100 mls @ 200 mls/hr 06/06/18 15:06 06/06/18 15:53 Sodium Chloride IVPB 06/06/18 15:35 200 mls/hr ONCE ONE Administration Ondansetron HCl 4 mg 06/06/18 13:47 06/06/18 14:45 Zofran Injection IVPUSH 06/06/18 13:48 4 mg ONCE ONE Administration Medical Decision Making - Medical Decision Making 06/06/18 16:06 Chief complaint: Nausea vomiting intermittently for the past 4 days with decreased by mouth intake and lower abdominal cramping patient also mild frontal headache and burning sensation to epigastric region. Exam: No acute findings on exam Plan: Urine, labs, Tylenol, protonix, zofran IV fluids and ultrasound 06/06/18 18:08 Laboratory Tests 06/06/18 06/06/18 06/06/18 14:20 14:20 15:42 WBC 7.4 Hgb 12.1 Hct 35.3 Plt Count 297 Absolute Neuts (auto) 5.4 Neutrophils % 73.0 Sodium 137 Potassium 3.7 Chloride 105 Carbon Dioxide 25 Anion Gap 7 L BUN 5 L Creatinine 0.5 L Creat Clearance w eGFR > 60 Random Glucose 98 Calcium 8.5 Beta HCG, Quant 72390.0 Urine Ketones 2+ H Urine Blood Negative Urine Bilirubin Negative Ur Leukocyte Esterase 2+ H Urine WBC (Auto) Pending Urine RBC (Auto) Pending Patient ordered for second liter of fluid and is pending ultrasound. 06/06/18 18:09 12/20/18 18:57 Pt states feeling much better. Urine culture sent. Will await final UA results and u/s report. Will endorse *DC/Admit/Observation/Transfer Diagnosis at time of Disposition: UTI (urinary tract infection) during - Discharge Dispostion Disposition: HOME Condition at time of disposition: Stable - Prescriptions Prescriptions: Cephalexin Monohydrate [Keflex -] 500 mg PO BID #20 capsule - Referrals Referrals: Rehana Che [Primary Care Provider] - - Patient Instructions Additional Instructions: Rest, drink lots of fluids: Teas, water, soups Avoid contact with others until fevers and symptoms resolved Lots of handwashing and good hygiene Continue [id number] medications for symptomatic relief Tylenol or Motrin for fever and pain Continue all of antibiotics until completed Followup with private physician in one week for repeat urinalysis/reevaluation Return to emergency department for worsened symptoms, fevers, dehydration danyelle Gonzalez muchos lquidos: Ts, agua, sopas Evite el contacto con otros hasta que las fiebres y los sntomas se resuelvan Un montn de lavado de jessica y buena higiene Contine los medicamentos sin receta para el alivio sintomtico Tylenol o Motrin para la fiebre y el dolor Continuar todos los antibiticos hasta completarse Seguimiento con mdico privado en samantha semana para repetir anlisis de orina / reevaluacin Volver al servicio de urgencias por sntomas empeorados, fiebres, deshidratacin - Post Discharge Activity
[2018-06-06 16:55] LABS: PH,URINE 6.5 (5.0-8.0); URINE APPEARANCE Clear; URINE BILIRUBIN Negative (<2.0 mg/dL); URINE COLOR Yellow; URINE GLUCOSE (UA) Negative (NEGATIVE); URINE KETONE 2+ (NEGATIVE); URINE LEUK ESTERASE 2+ (NEGATIVE); URINE NITRITE Negative (NEGATIVE); URINE PROTEIN Negative (NEGATIVE); URINE UROBILINOGEN 0.2 mg/dL (0.2-1.0)
[2018-06-06 19:19] VITALS: BP 102/62; PULSE 80; TEMP 98.1
[2018-06-06 19:36] LABS: EPI CELLS FEW /HPF (FEW); URINE BACTERIA MODERATE /hpf (NONE SEEN); URINE MUCUS MODERATE
--- NOTE | 2018-06-06 20:54 | PDOC ---
*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 - Vital Signs Last Vital Signs Temp Pulse Resp BP Pulse Ox 98.1 F 80 18 102/62 98 06/06/18 19:18 06/06/18 19:18 06/06/18 19:18 06/06/18 19:18 06/06/18 19:18 - 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 General Appearance: Yes: Appropriately Dressed. No: Apparent Distress Neck: positive: Trachea midline Respiratory/Chest: positive: Lungs Clear, Normal Breath Sounds. negative: Respiratory Distress, Accessory Muscle Use Cardiovascular: positive: Regular Rhythm, Regular Rate. negative: Murmur Gastrointestinal/Abdominal: positive: Normal Bowel Sounds, Soft, Other (gravid abdomen). negative: Tender ED Treatment Course - LABORATORY CBC & Chemistry Diagram: 06/06/18 14:20 06/06/18 14:20 - ADDITIONAL ORDERS Additional order review: Laboratory Results 06/06/18 06/06/18 15:42 14:20 Sodium 137 Potassium 3.7 Chloride 105 Carbon Dioxide 25 Anion Gap 7 L BUN 5 L Creatinine 0.5 L Creat Clearance w eGFR > 60 Random Glucose 98 Calcium 8.5 Beta HCG, Quant 37859.0 Urine Color Yellow Urine Appearance Clear Urine pH 6.5 Ur Specific [place] 1.020 Urine Protein Negative Urine Glucose (UA) Negative Urine Ketones 2+ H Urine Blood Negative Urine Nitrite Negative Urine Bilirubin Negative Urine Urobilinogen 0.2 Ur Leukocyte Esterase 2+ H Urine WBC (Auto) 7 Urine RBC (Auto) 2 Ur Epithelial Cells Few Urine Bacteria Moderate Urine Mucus Moderate 06/06/18 14:20 RBC 4.33 MCV 81.5 MCHC 34.2 RDW 14.6 D MPV 7.9 Neutrophils % 73.0 Lymphocytes % 19.5 Monocytes % 6.5 Eosinophils % 0.7 Basophils % 0.3 - Medications Given in the ED: ED Medications Discontinued Medications Generic Name Dose Route Start Last Admin Trade Name Freq PRN Reason Stop Dose Admin Acetaminophen 975 mg 06/06/18 15:06 06/06/18 15:53 Tylenol - PO 06/06/18 15:07 975 mg ONCE ONE Administration Sodium Chloride 1,000 mls @ 1,000 mls/hr 06/06/18 13:40 06/06/18 14:45 Normal Saline - IV 06/06/18 14:39 1,000 mls/hr ASDIR STA Administration Pantoprazole Sodium 40 mg/ 100 mls @ 200 mls/hr 06/06/18 15:06 06/06/18 15:53 Sodium Chloride IVPB 06/06/18 15:35 200 mls/hr ONCE ONE Administration Sodium Chloride 1,000 mls @ 1,000 mls/hr 06/06/18 18:09 06/06/18 18:25 Normal Saline - IV 06/06/18 19:08 1,000 mls/hr ASDIR STA Administration Ondansetron HCl 4 mg 06/06/18 13:47 06/06/18 14:45 Zofran Injection IVPUSH 06/06/18 13:48 4 mg ONCE ONE Administration Progress Note - Progress Note Progress Note: Received signout from AMY Toribio. Briefly this is a 32-year-old woman who is 16 weeks gestation for evaluation of abdominal cramping, nausea and vomiting. Urinalysis laboratory testing revealed dehydration fourth the patient received some fluids, Reglan and Tylenol. Patient reports relief of symptoms after receiving medication and currently has ultrasound read and urinalysis pending. Medical Decision Making - Medical Decision Making 06/06/18 20:52 Ultrasound as read by Dr. Sahu: Single viable intrauterine gestation at approximately 16 weeks 0 days. heart rate- 144. Urinalysis with 2+ leuk esterase 2+ ketones with 7 WBCs. As patient is I will treat for UTI for this urinalysis. I discussed the physical exam findings, ancillary test results and final diagnoses with the patient. I answered all of the patient's questions. The patient was satisfied with the care received and felt comfortable with the discharge plan and treatment plan. The patient will call their primary care physician within 24 hours to arrange follow-up and will return to the Emergency Department with any new, persistent or worsening symptoms. *DC/Admit/Observation/Transfer Diagnosis at time of Disposition: UTI (urinary tract infection) during Qualifiers: Trimester: second trimester Qualified Code(s): O23.42 - Unspecified infection of urinary tract in , second trimester - Discharge Dispostion Disposition: HOME Condition at time of disposition: Stable Decision to Admit order: No - Prescriptions Prescriptions: Cephalexin Monohydrate [Keflex -] 500 mg PO BID #20 capsule - Referrals Referrals: Rehana Che [Primary Care Provider] - - Patient Instructions Additional Instructions: Rest, drink lots of fluids: Teas, water, soups Avoid contact with others until fevers and symptoms resolved Lots of handwashing and good hygiene Continue nyjf-xuz-qxzjpof medications for symptomatic relief Tylenol or Motrin for fever and pain Continue all of antibiotics until completed Followup with private physician in one week for repeat urinalysis/reevaluation Return to emergency department for worsened symptoms, fevers, dehydration Waleedanyelle muchos lquidos: Ts, agua, sopas Evite el contacto con otros hasta que las fiebres y los sntomas se resuelvan Un montn de lavado de jessica y buena higiene Contine los medicamentos sin receta para el alivio sintomtico Tylenol o Motrin para la fiebre y el dolor Continuar todos los antibiticos hasta completarse Seguimiento con mdico privado en samantha semana para repetir anlisis de orina / reevaluacin Volver al servicio de urgencias por sntomas empeorados, fiebres, deshidratacin - Post Discharge Activity
== END 2018-06-06 21:06 | disposition home or self-care (01) ==
LOC: JER 13:19
PROC: 3E0337Z Introduction of Electrolytic and Water Balance Substance into Peripheral Vein, Percutaneous Approach (ICD-10-PCS; principal; 2018-06-06)
PROC: 3E0337Z Introduction of Electrolytic and Water Balance Substance into Peripheral Vein, Percutaneous Approach (ICD-10-PCS; 2018-06-06)
PROC: 3E033GC Introduction of Other Therapeutic Substance into Peripheral Vein, Percutaneous Approach (ICD-10-PCS; 2018-06-06)
PROC: 3E033GC Introduction of Other Therapeutic Substance into Peripheral Vein, Percutaneous Approach (ICD-10-PCS; 2018-06-06)
DX: O26.892 Other specified pregnancy related conditions, second trimester (principal); O23.42 Unspecified infection of urinary tract in pregnancy, second trimester; Z3A.15 15 weeks gestation of pregnancy
CPT/HCPCS: 36415; 76801-TC; 80048; 81003; 81015; 84702; 85025; 87086; 99284-25; J7030

== ENCOUNTER 2018-08-11 22:25 | Emergency (ER) | payer OTHER ==
[2018-08-11 22:53] VITALS: BMI 27.4
[2018-08-11] MEDS ORDERED: morphine CARPU-JECT 2 MG/1 ML DISP.SYRIN IVPUSH ONE (23:07)
[2018-08-11] MEDS ORDERED: SODIUM CHLORIDE 0.9% 500 ML INFUS.BAG IV ONE (23:07)
--- NOTE | 2018-08-11 23:08 | PDOC ---
History of Present Illness - General History Source: Patient Exam Limitations: No Limitations - History of Present Illness Initial Comments: 08/11/18 23:12 The patient is a 32 year old female, A1, currently 6 months with a PMH of migraines who presents to the ER with a headache and nausea today. Patient states she normally takes Tylenol for her typical migraines. Patient also endorses a decrease in appetite and pain with urination but denies any other symptoms. Allergies: NKA Past surgical history: None reported. Social history: No reported alcohol, drug or cigarette use. <Sharonda Chamorro - Last Filed: 08/11/18 23:17> <Neva Gutierrez - Last Filed: 08/12/18 06:29> - General Chief Complaint: Pain Stated Complaint: HEADACHE/ CHEST PAIN/VOMITING Time Seen by Provider: 08/11/18 23:01 Past History <Sharonda Chamorro - Last Filed: 08/11/18 23:17> - Past Medical History Anemia: No Asthma: Yes Cancer: No Cardiac Disorders: No CVA: No COPD: No CHF: No Dementia: No Diabetes: No GI Disorders: No Disorders: No HTN: No Hypercholesterolemia: No Liver Disease: No Seizures: No Thyroid Disease: No - Surgical History Abdominal Surgery: No Appendectomy: No Cardiac Surgery: No Cholecystectomy: No Lung Surgery: No Neurologic Surgery: No Orthopedic Surgery: No - Reproductive History (#): 3 Para: 1 Spontaneous : 0 - Immunization History Immunization Up to Date: Yes - Suicide/Smoking/Psychosocial Hx Smoking History: Never smoked Have you smoked in the past 12 months: No Information on smoking cessation initiated: No Hx Alcohol Use: No Drug/Substance Use Hx: No Substance Use Type: None Hx Substance Use Treatment: No <Neva Gutierrez - Last Filed: 08/12/18 06:29> - Past Medical History Allergies/Adverse Reactions: Allergies Allergy/AdvReac Type Severity Reaction Status Date / Time albuterol Allergy Mild Verified 08/12/18 03:08 clotrimazole Allergy Mild Itching Verified 08/12/18 03:08 Home Medications: Ambulatory Orders Pnv No.95/Ferrous Fum/Folic AC [ Vitamin Tablet] 1 each PO DAILY Review of Systems - Review of Systems Comments:: 08/11/18 23:11 ADULT ROS GENERAL/CONSTITUTIONAL: No fever or chills. No weakness. HEAD, EYES, EARS, NOSE AND THROAT: No change in vision. No ear pain or discharge. No sore throat. CARDIOVASCULAR: No chest pain or shortness of breath. RESPIRATORY: No cough, wheezing, or hemoptysis. GASTROINTESTINAL: No vomiting, diarrhea or constipation. (+) Nausea GENITOURINARY: No dysuria, frequency, or change in urination. MUSCULOSKELETAL: No joint or muscle swelling or pain. No neck or back pain. SKIN: No rash NEUROLOGIC: No vertigo, loss of consciousness, or change in strength/sensation. (+) Headache. ENDOCRINE: No increased thirst. No abnormal weight change. HEMATOLOGIC/LYMPHATIC: No anemia, easy bleeding, or history of blood clots. ALLERGIC/IMMUNOLOGIC: No hives or skin allergy. <Sharonda Chamorro - Last Filed: 08/11/18 23:17> *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 - Vital Signs Last Vital Signs Temp Pulse Resp BP Pulse Ox 98.2 F 95 H 20 116/71 100 08/11/18 22:50 08/11/18 22:50 08/11/18 22:50 08/11/18 22:50 08/11/18 22:50 - 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 Comments: 08/11/18 23:11 ADULT EXAM GENERAL: Awake, alert, and fully oriented, in no acute distress HEAD: No signs of trauma EYES: PERRLA, EOMI, sclera anicteric, conjunctiva clear ENT: Auricles normal inspection, hearing grossly normal, nares patent, oropharynx clear without exudates. Moist mucosa NECK: Normal ROM, supple, no lymphadenopathy, JVD, or masses LUNGS: Breath sounds equal, clear to auscultation bilaterally. No wheezes, and no crackles HEART: Regular rate and rhythm, normal S1 and S2, no murmurs, rubs or gallops ABDOMEN: (+) 6 month gravid uterus. Soft, normoactive bowel sounds. No guarding , no rebound. No masses EXTREMITIES: Normal range of motion, no edema. No clubbing or cyanosis. No cords, erythema, or tenderness NEUROLOGICAL: Cranial nerves II through XII grossly intact. Normal speech, normal gait SKIN: Warm, Dry, normal turgor, no rashes or lesions noted. <Sharonda Chamorro - Last Filed: 08/11/18 23:17> - Vital Signs Last Vital Signs Temp Pulse Resp BP Pulse Ox 98.2 F 95 H 20 116/71 100 08/11/18 22:50 08/11/18 22:50 08/11/18 22:50 08/11/18 22:50 08/11/18 22:50 <Neva Gutierrez - Last Filed: 08/12/18 06:29> Moderate Sedation - Procedure Monitoring Vital Signs: Procedure Monitoring Vital Signs Temperature 98.2 F 08/11/18 22:50 Pulse Rate 95 H 08/11/18 22:50 Respiratory Rate 20 08/11/18 22:50 Blood Pressure 116/71 08/11/18 22:50 O2 Sat by Pulse Oximetry (%) 100 08/11/18 22:50 <Sharonda Chamorro - Last Filed: 08/11/18 23:17> - Procedure Monitoring Vital Signs: Procedure Monitoring Vital Signs Temperature 98.2 F 08/11/18 22:50 Pulse Rate 95 H 08/11/18 22:50 Respiratory Rate 20 08/11/18 22:50 Blood Pressure 116/71 08/11/18 22:50 O2 Sat by Pulse Oximetry (%) 100 08/11/18 22:50 <Neva Gutierrez - Last Filed: 08/12/18 06:29> ED Treatment Course - LABORATORY CBC & Chemistry Diagram: 08/11/18 23:20 08/11/18 23:20 <Neva Gutierrez - Last Filed: 08/12/18 06:29> Medical Decision Making - Medical Decision Making 08/12/18 00:02 CBC and Pt/INR normal BP normal bilaterally; no sign of eclampsia. Pt given a L bolus and zofran, as she ate little today. Pt will be given morphine for the headache. She will be sent upstairs to L+D once her Chem returns UA needs to be collected. <Neva Gutierrez - Last Filed: 08/12/18 06:29> *DC/Admit/Observation/Transfer - Attestations Scribe Attestion: 08/11/18 23:16 Documentation prepared by Sharonda Chamorro, acting as director medical science for Neva Gutierrez MD. <Sharonda Chamorro - Last Filed: 08/11/18 23:17> <Neva Gutierrez - Last Filed: 08/12/18 06:29> Diagnosis at time of Disposition: Normal - Discharge Dispostion Disposition: HOME Condition at time of disposition: Stable - Referrals Referrals: Freda Macisa MD [Staff Physician] - (08/12/18 0155 Safely discharged from labor and delivery (usted puedes voy la casa). return to the hospital if you experience (regresar si tener) lower abdominal pain ( dolar), vaginal bleeding (sangrado vaginal), and/or suspect baby is not moving ( creo el ion no se mueve), your water breaks (rompes el agua).)
[2018-08-11] MEDS ORDERED: ONDANSETRON 4 MG/2 ML VIAL IVPB ONE (23:09)
[2018-08-11] MEDS ORDERED: ONDANSETRON 4 MG/2 ML VIAL ONE (23:27)
[2018-08-11 23:43] LABS: BASO % 0.4 % (0-2.0); EOS % 1.1 % (0-4.5); HEMATOCRIT 30.6 % (32.4-45.2); HEMOGLOBIN 10.1 GM/dL (10.7-15.3); LYMPH % 13.6 % (8-40); MCH 26.8 pg (25.7-33.7); MCHC 33.2 g/dl (32.0-36.0); MEAN CELL VOLUME 80.6 fl (80-96); MEAN PLT VOLUME 7.6 fl (7.5-11.1); NEUT % 77.9 % (42.8-82.8); PLATELET COUNT 300 K/MM3 (134-434); RBC 3.79 M/mm3 (3.60-5.2)
[2018-08-11] MEDS ORDERED: MORPHINE SULFATE 2 MG/ML VIAL ONE (23:56)
[2018-08-11 23:58] LABS: INR 0.97 (0.83-1.09); PROTHROMBIN TIME (PATIENT) 11.5 SEC (9.7-13.0)
[2018-08-12 00:14] LABS: ALBUMIN 2.5 g/dl (3.4-5.0); ALK PHOS 91 U/L (45-117); ANION GAP 4 MMOL/L (8-16); BILIRUBIN,TOTAL 0.2 mg/dL (0.2-1); BLOOD UREA NITROGEN 4 mg/dL (7-18); CALCIUM 8.2 mg/dL (8.5-10.1); CHLORIDE 107 mmol/L (98-107); CO2 27 mmol/L (21-32); CREATININE 0.4 mg/dL (0.55-1.3); GLUCOSE,RANDOM 88 mg/dL (74-106); POTASSIUM 4.2 mmol/L (3.5-5.1); SGOT/AST 18 U/L (15-37); SGPT/ALT 16 U/L (13-61); SODIUM 138 mmol/L (136-145); TOT PROT 6.1 g/dl (6.4-8.2)
[2018-08-12 00:46] LABS: URINE APPEARANCE CLEAR; URINE BILIRUBIN NEGATIVE (<2.0 mg/dL); URINE COLOR COLORLESS; URINE GLUCOSE (UA) NEGATIVE (NEGATIVE); URINE KETONE NEGATIVE (NEGATIVE); URINE LEUK ESTERASE 3+ (NEGATIVE); URINE NITRITE NEGATIVE (NEGATIVE); URINE PROTEIN NEGATIVE (NEGATIVE); URINE UROBILINOGEN NEGATIVE mg/dL (0.2-1.0)
[2018-08-12 01:15] LABS: EPI CELLS RARE /HPF (FEW); URINE BACTERIA FEW /hpf (NONE SEEN); YEAST RARE
[2018-08-12 03:03] VITALS: BP 109/69; PULSE 78; TEMP 97.9
== END 2018-08-12 02:20 | disposition home or self-care (01) ==
LOC: JER 22:25
PROC: 3E033NZ Introduction of Analgesics, Hypnotics, Sedatives into Peripheral Vein, Percutaneous Approach (ICD-10-PCS; principal; 2018-08-11)
PROC: 3E033GC Introduction of Other Therapeutic Substance into Peripheral Vein, Percutaneous Approach (ICD-10-PCS; 2018-08-11)
DX: O26.892 Other specified pregnancy related conditions, second trimester (principal); R51 Headache; Z3A.24 24 weeks gestation of pregnancy
CPT/HCPCS: 36415; 80053; 81003; 81015; 85025; 85610; 96374; 96375; 99282-25

== ENCOUNTER 2018-08-18 18:34 | Emergency (ER) | payer OTHER ==
[2018-08-18 18:50] VITALS: BMI 23.8
[2018-08-18] MEDS ORDERED: ACETAMINOPHEN 325 MG TABLET (FP) PO ONE (19:02)
--- NOTE | 2018-08-18 19:11 | PDOC ---
History of Present Illness - General Chief Complaint: Chest Pain Stated Complaint: CHEST PAIN Time Seen by Provider: 08/18/18 18:53 - History of Present Illness Initial Comments: Trice Vera is a 33yo A1, currently 6 months , with a PMH of migraine RIVERO who presents with feeling of palpitations today along with body aches in her back, arms, and upper chest. She states that the symptoms started around 5pm tonight. She did not take any acetaminophen at home for the pain in the evening. However, she does report feeling similar pain this morning. She took acetaminophen at 11am with resolution of the pain at that time. Approximately 6 hours later, the pain returned and she also noted a sensation of palpations so decided to present to the hospital. Ms Castillo denies any recent fevers, chills, nasal congestion, rhinorrea, cough, vomiting, or diarrhea. She has no known sick contacts. She does endorse mild nausea earlier as well as painful urination last week, but she was seen by Dr Cochran on Sunday and told that her blood and urine tests were normal at that time. Past History - Past Medical History Allergies/Adverse Reactions: Allergies Allergy/AdvReac Type Severity Reaction Status Date / Time albuterol Allergy Mild Verified 08/18/18 21:24 clotrimazole Allergy Mild Itching Verified 08/18/18 21:24 Home Medications: Ambulatory Orders Pnv No.95/Ferrous Fum/Folic AC [ Vitamin Tablet] 1 each PO DAILY Amox-Tr/K Cl [Augmentin - 500Mg Tablet] 1 tab PO BID #14 tab 08/18/18 Anemia: No Asthma: Yes Cancer: No Cardiac Disorders: No CVA: No COPD: No CHF: No Dementia: No Diabetes: No GI Disorders: No Disorders: No HTN: No Hypercholesterolemia: No Liver Disease: No Seizures: No Thyroid Disease: No - Surgical History Abdominal Surgery: No Appendectomy: No Cardiac Surgery: No Cholecystectomy: No Lung Surgery: No Neurologic Surgery: No Orthopedic Surgery: No - Reproductive History (#): 3 Para: 1 Spontaneous : 0 - Immunization History Immunization Up to Date: Yes - Suicide/Smoking/Psychosocial Hx Smoking History: Never smoked Have you smoked in the past 12 months: No Information on smoking cessation initiated: No Hx Alcohol Use: No Drug/Substance Use Hx: No Substance Use Type: None Hx Substance Use Treatment: No Review of Systems - Review of Systems Comments:: General: No fevers, no chills, no weight or appetite change, no malaise HEENT: No changes in vision, no changes in hearing, no congestion, no sore throat CV: No chest pain, + palpitations, no LE edema Pulm: No SOB, no cough, no wheezing GI: +mild nausea, no vomiting, no change in bowel habits, no melena : No frequency, no urgency, no dysuria Musc: +Back pain, +arm pain, +shoulder/chest pain, no joint swelling, no recent injury Skin: No rash, no lesions, no erythema Endo: No excessive thirst, no heat/cold intolerance Heme: No unusual bruising or bleeding, no swollen glands Neuro: No syncope, no numbness/tingling, no focal weakness Vasc: No claudication Psych: No recent change in mood, no SI or HI *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 - Vital Signs Last Vital Signs Temp Pulse Resp BP Pulse Ox 98.6 F 107 H 20 125/75 100 08/18/18 18:48 08/18/18 18:48 08/18/18 18:48 08/18/18 18:48 08/18/18 18:48 - 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 Comments: General: Comfortable, no acute distress HEENT: PERRL, EOMI, MMM, voice normal, normal neck ROM, no LAD Cards: Mildly tachycardic, regular. Mildly TTP along b/l upper chest/shoulders Pulm: Comfortable on room air, clear to auscultation bilaterally Abd: Soft, nontender, nondistended, gravid Back: Mildly TTP along upper back and shoulders Ext: Atraumatic. Mildly TTP along b/l upper arms. ROM intact. Strength 5/5 and equal bilaterally Vasc: Extremities WWP Skin: Normal color, no rashes or lesions Neuro: A&Ox3, CN grossly intact, normal speech, motor/sensory grossly intact and symmetric Psych: Mood appropriate to situation Moderate Sedation - Procedure Monitoring Vital Signs: Procedure Monitoring Vital Signs Temperature 98.6 F 08/18/18 18:48 Pulse Rate 107 H 08/18/18 18:48 Respiratory Rate 20 08/18/18 18:48 Blood Pressure 125/75 08/18/18 18:48 O2 Sat by Pulse Oximetry (%) 100 08/18/18 18:48 Medical Decision Making - Medical Decision Making 08/18/18 19:09 Trice Vera is a 33yo A1, currently 6 months , with a PMH of migraine RIVERO who presents with feeling of palpitations today along with body aches in her back, arms, and upper chest. She denies any other symptoms. - Benign physical exam. 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 Sinus rhythm, mildly tachycardic. Otherwise normal EKG. Slight tachycardia likely due to . Previous HR recorded around 100/min also - Reports acetaminophen resolved aches earlier in the day. Will give acetaminophen in ED for continued pain. - Reports labs and UA on Sunday 08/13 at her OB appointment were normal. Denies fevers, chills, vomiting, change in bowel habits, cough, congestion, or any recent sign of infection. Will not repeat today - To L&D for assessment 08/18/18 19:26 - Updated L&D by phone 08/18/18 22:11 - Seen and cleared by L&D. Sent back to ER for report of continued chest pain. On additional discussion, Ms Castillo states that the feeling is "pins and needles " located along her b/l upper chest, upper back, neck, and b/l arms (L arm more than right). She additionally reports a migraine headache earlier today, and she has mild continued left-sided head pain. - Endorsed dysuria to L&D staff, UA sent prior to return to ED - Immediately following the discussion, she reported that the pins and needles sensation has nearly resolved. - VSS, HR checked manually, approx 100. No changes to physical exam. Some discomfort with palpation of entire upper torso and with arm movement. - Requesting to be discharged home. Will d/c with PMD follow up and cardiology referral. 08/18/18 23:10 - UA resulted. Likely positive for UTI with 35 WBC and 3+ leuk esterase. As Ms Castillo is and has dysuria, will treat - Pt already left the ED. Called to inform her regarding the need for antibiotics. Spoke to pt's , Maco Castillo, who reported that he understands the need for antibiotics. They plan to picker feeder the abx tomorrow morning. He understands that the prescription will need to be taken twice daily for one week. Discussed with Dr Evans. Anne Torres PGY1 *DC/Admit/Observation/Transfer Diagnosis at time of Disposition: Body aches, - Discharge Dispostion Disposition: TRANSFER ACUTE CARE/OTHER HOSP Condition at time of disposition: Stable - Prescriptions Prescriptions: Amox-Tr/K Cl [Augmentin - 500Mg Tablet] 1 tab PO BID #14 tab - Referrals Referrals: Freda Macias MD [Staff Physician] - (patient to ER for further evaluation of chest pain patient to increase amount of water she drinks daily to 10--8oz glasses patient to maintain appt as scheduled w/ for 09/03/18 4pm or reschedule for earlier to be seen patient to return to l&d if water breaks, vaginal bleeding, decreased movement or regular contractions patient states clear understanding of all discharge instructions patient sent to ER for further evaluation of chest pain via wheelchair) Leonidas Harrell MD [Staff Physician] - - Patient Instructions Printed Discharge Instructions: DI for Atypical Chest Pain, DI for - - Discomforts and Remedies Additional Instructions: Discharge Instructions: You were seen in the emergency department for body aches and palpitations at home. Your vital signs (heart rate, blood pressure, temperature) were evaluated , and you had an EKG to check your heart. Your heart was beating regularly, and there were no concerns on the tests. You were given acetaminophen (Tylenol) for your body aches. Make an appointment to see your regular doctor within the next week. You also indicated that you were found to have high blood pressure in the past, though your blood pressure was normal while you were in the emergency room today. You have been referred to a cotton classer for evaluation and possibly for additional testing. Continue to take all of your home medications as previously prescribed. If you have additional body aches, you may take acetaminophen 650-1000mg every 6-8 hours as needed for continued pain. Make sure you follow up with your film critic as directed. Instrucciones de descarga: Usted fue atendido en el departamento de emergencias por michaela corporales y palpitaciones en el hogar. Se evaluaron francheska signos vitales (frecuencia cardaca , presin arterial, temperatura) y usted tuvo un ECG para controlar walters corazn. Walters corazn ryan con regularidad, y no hubo ninguna preocupacin en las pruebas. Recibi acetaminofeno (Tylenol) para los michaela de walters cuerpo. Hemant samantha lola para antoinette a walters mdico de cabecera dentro de la prxima semana. Tambin indic que se descubri que chilo presin arterial adamaris en el pasado, aunque walters presin arterial era normal mientras estaba en la cammy de emergencias hoy. Usted rivero sido referido a un cardilogo para samantha evaluacin y posiblemente para pruebas adicionales Contine tomando todos francheska medicamentos caseros segn lo prescrito anteriormente. Si tiene michaela adicionales en el cuerpo, puede leisa acetaminofn 650-1000mg cada 6-8 horas segn sea necesario para el dolor continuo. Asegrese de hacer un seguimiento con walters obstetra segn las indicaciones. Print Language: MALAWIAN - Post Discharge Activity
--- NOTE | 2018-08-18 19:20 | PDOC ---
Attending Attestation - Resident Resident Name: Anne Torres - ED Attending Attestation I have performed the following: I have examined & evaluated the patient, The case was reviewed & discussed with the resident, I agree w/resident's findings & plan, Exceptions are as noted - HPI HPI: 08/18/18 19:22 33-year-old female presents with family and has complaint of body aches. She has no fever, no chills, no dysuria, no vomiting, no shortness of breath and no chest pain . She states that she is 27 weeks - Physicial Exam PE: 08/18/18 19:23 33-year-old female who is 27 weeks presents with complaint of all over body aches Head normocephalic/atraumatic. Eyes pupils equal, reactive to light and accommodation, extraocular muscles intact. Neck supple, no bruits. Lungs clear to auscultation. CVS, mild tachycardia Abdomen protuberant abdomen Extremities full range of motion. Skin warm and dry, no rashes. Neuro alert and oriented 3, motor strength 5 out of 5 bilaterally, ambulatory Psych appropriate - Medical Decision Making 08/18/18 19:25 ekg sinus tachy@ 107,no st elevatios,no st depressions, no signs of ischemia. case discussed with labor and delivery and this pt will be sent to them for monitoring
[2018-08-18] MEDS ORDERED: ACETAMINOPHEN 325 MG TABLET (FP) ONE (19:24)
[2018-08-18 21:22] VITALS: BP 110/69; PULSE 90; TEMP 98.8
[2018-08-18 21:45] LABS: URINE APPEARANCE SLCLOUDY; URINE BILIRUBIN NEGATIVE (<2.0 mg/dL); URINE COLOR LTYELLOW; URINE GLUCOSE (UA) NEGATIVE (NEGATIVE); URINE KETONE NEGATIVE (NEGATIVE); URINE LEUK ESTERASE 3+ (NEGATIVE); URINE NITRITE NEGATIVE (NEGATIVE); URINE PROTEIN NEGATIVE (NEGATIVE); URINE UROBILINOGEN NEGATIVE mg/dL (0.2-1.0)
[2018-08-18 22:01] LABS: EPI CELLS RARE /HPF (FEW); URINE BACTERIA RARE /hpf (NONE SEEN); URINE MUCUS RARE; YEAST RARE
--- NOTE | 2018-08-20 13:50 | EKG ---
Test Reason : Blood Pressure : / mmHG Vent. Rate : 107 BPM Atrial Rate : 107 BPM P-R Int : 140 ms QRS Dur : 060 ms QT Int : 334 ms P-R-T Axes : 069 031 026 degrees QTc Int : 445 ms POOR DATA QUALITY, INTERPRETATION MAY BE ADVERSELY AFFECTED SINUS TACHYCARDIA OTHERWISE NORMAL ECG WHEN COMPARED WITH ECG OF 06-JUL-2016 09:56, VENT. RATE HAS INCREASED BY 39 BPM Confirmed by MD Manny, Osorio ([id number]) on 08/20/2018 1:50:29 PM Referred By: Confirmed By:Osorio Bryant MD
== END 2018-08-18 21:00 | disposition home or self-care (01) ==
LOC: JER 18:34
DX: O26.892 Other specified pregnancy related conditions, second trimester (principal); N39.0 Urinary tract infection, site not specified; Z3A.27 27 weeks gestation of pregnancy
CPT/HCPCS: 81003; 81015; 87086; 93005; 93010; 99283-25

== ENCOUNTER 2018-11-17 14:16 | Emergency (ER) | payer OTHER | END 2018-11-17 15:00 | disposition left against medical advice (07) | LOC: JER 14:16 ==

== ENCOUNTER 2018-11-18 18:40 | Inpatient (IN) | payer OTHER ==
[2018-11-18] MEDS ORDERED: CITRIC ACID/SODIUM CITRATE 30 ML UNIT-DOSE CUP PO ONE (20:33)
[2018-11-18] MEDS ORDERED: ELECTROLYTE-148 SOLN 500 ML IV ONE (20:33)
--- NOTE | 2018-11-18 20:41 | HP ---
Past Medical History - Admission Chief Complaint: Labor pain History of Present Illness: 33 yo @ 38.5 weeks gestation, EDC 11/27/18, with previous , presents c/o labor pain and weakness of the left face. Upon examination, she was 1cm dilated. She was scheduled for repeat on 11/20/18; decision made for today due to labor pain. History Source: Patient Limitations to Obtaining History: No Limitations - Past Medical History ...Para: 1 ...EDC by [facility]: 11/27/18 - Past Surgical History Past Surgical History: Yes: None Hx Myomectomy: No Hx Transabdominal Cerclage: No - Smoking History Smoking history: Never smoked Have you smoked in the past 12 months: No - Alcohol/Substance Use Hx Alcohol Use: No History of Substance Use: reports: None - Social History Usual Living Arrangement: Yes: With Spouse History of Recent Travel: No Home Medications - Allergies Allergies/Adverse Reactions: Allergies Allergy/AdvReac Type Severity Reaction Status Date / Time albuterol Allergy Mild Verified 11/17/18 14:22 clotrimazole Allergy Mild Itching Verified 11/17/18 14:22 - Home Medications Home Medications: Ambulatory Orders Pnv No.95/Ferrous Fum/Folic AC [ Vitamin Tablet] 1 each PO DAILY Family Disease History - Family Disease History Family History: Unremarkable Review of Systems - Review of Systems Constitutional: reports: No Symptoms Eyes: reports: No Symptoms HENT: reports: No Symptoms Neck: reports: No Symptoms Cardiovascular: reports: No Symptoms Respiratory: reports: No Symptoms Gastrointestinal: reports: No Symptoms Genitourinary: reports: Pain Breasts: reports: No Symptoms Reported Musculoskeletal: reports: No Symptoms Integumentary: reports: No Symptoms Neurological: reports: No Symptoms Endocrine: reports: No Symptoms Hematology/Lymphatic: reports: No Symptoms Psychiatric: reports: No Symptoms Pain Intensity: 6 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 - Maternity Constitutional: Yes: Well Nourished Eyes: Yes: Conjunctiva Clear HENT: Yes: Atraumatic Neck: Yes: Supple Cardiovascular: Yes: Regular Rate and Rhythm Lungs: Clear to auscultation - Abdominal Exam/OB Number of Fetuses: Single Presentation: Vertex - Vaginal Exam/OB Presentation: Vertex/Position Station: -3 - 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 ...Motor Strength: WNL Psychiatric: Yes: Alert, Oriented Problem List - Problems (1) 38 to 41 weeks gestation of Code(s): [id number] - (2) Previous section complicating , antepartum condition or complication Code(s): O34.219 - MATERNAL CARE FOR UNSP TYPE SCAR FROM PREVIOUS DEL Assessment/Plan Previous in labor 38 weeks gestation Pre op for repeat Consent signed Anesthesia to see patient
[2018-11-18 20:49] VITALS: BMI 27.4
[2018-11-18] MEDS ORDERED: morphine SULFATE/Preservative Free 0.5 MG/ML (1cc Syringe) EP ONE (21:02)
[2018-11-18] MEDS ORDERED: ceFAZolin SODIUM 1 GM VIAL ONE (21:29)
[2018-11-18] MEDS ORDERED: OXYTOCIN 10 UNITS/ML VIAL ONE (21:29)
[2018-11-18] MEDS ORDERED: METHYLERGONOVINE MALEATE 0.2 MG/1 ML AMP IM PRN (22:11)
--- NOTE | 2018-11-18 22:13 | OP ---
Operative Note - Note: Operative Date: 11/18/18 Pre-Operative Diagnosis: Previous in labor Operation: Repeat Low Transverse Post-Operative Diagnosis: Same as Pre-op Surgeon: Bambi Cochran Deburr Technician: Umer Parker Anesthesia: Spinal Estimated Blood Loss (mls): 600
[2018-11-18] MEDS ORDERED: OXYTOCIN 20 UNITS in 0.9% NS 20 UNIT/1,000 ML INFUS.BAG IV SCH (22:15)
[2018-11-18] MEDS ORDERED: OXYTOCIN 20 UNITS in 0.9% NS 20 UNIT/1,000 ML INFUS.BAG IV ONE (22:48)
[2018-11-19] MEDS: IBUPROFEN 800 MG/8 ML IJ IVPB PRN ×2 (00:58→09:26)
--- NOTE | 2018-11-19 07:37 | PN ---
HC Provider Note Provider Note: Anesthesia Post Pt seen s/p spinal for c/section Pt awake alert denies h/a, n/v good pain control reveles in situ reports normal sensory and strength b/l lower ext VSS no apparent anesthesia complications Marilyn Chung.
[2018-11-19 07:44] LABS: BASO % 0.3 % (0-2.0); EOS % 0.7 % (0-4.5); HEMOGLOBIN 8.4 GM/dL (10.7-15.3); LYMPH % 9.7 % (8-40); MCH 20.8 pg (25.7-33.7); MCHC 30.1 g/dl (32.0-36.0); MEAN CELL VOLUME 69.2 fl (80-96); MEAN PLT VOLUME 6.9 fl (7.5-11.1); MONO % 5.6 % (3.8-10.2); NEUT % 83.7 % (42.8-82.8); PLATELET COUNT 266 K/MM3 (134-434); RBC 4.05 M/mm3 (3.60-5.2); RDW 18.4 % (11.6-15.6); WHITE BLOOD COUNT 14.4 K/mm3 (4.0-10.0)
[2018-11-19] MEDS ORDERED: PNEUMOCOCCAL 23 VACCINE 0.5 ML VIAL IM ONE (09:00)
[2018-11-19] MEDS: PRENATAL VITAMINS W/ FOLIC ACID TABLET (FP) PO SCH (09:32)
[2018-11-19] MEDS: FERROUS SO4 325 MG TABLET (FP) PO SCH ×2 (09:32→22:29)
[2018-11-19] MEDS ORDERED: PNEUMOC 13-VAL CONJ-DIP CRM/PF 0.5 ML DISP.SYRIN IM ONE (10:00)
[2018-11-19] MEDS ORDERED: DIPHTH,PERTUSS(ACELL),TET 0.5 ML DISP.SYRIN IM ONE (10:00)
--- NOTE | 2018-11-19 10:54 | PN ---
Post Progress Note - Subjective Subjective: 33 yo Para 2 status post repeat , seen and evaluated. Doing well. She's lying in bed. Post Day: 1 Type of Delivery: Repeat C/S Vital Signs: Vital Signs Temperature 98.6 F 11/19/18 05:17 Pulse Rate 86 11/19/18 05:17 Respiratory Rate 18 11/19/18 05:17 Blood Pressure 119/76 11/19/18 05:17 O2 Sat by Pulse Oximetry (%) 99 11/18/18 22:45 Breast Exam: Yes: Soft Uterus: Yes: Fundus @ umbilicus Incision: Yes: Dressing dry and intact Abdomen/GI: Yes: Abdomen soft, Tolerating PO Lochia: Yes: Rubra Lochia, amount: Small Extremities: Yes: Calves non-tender Activity: Other (She's lying in bed) - Labs Labs: CBC WBC 14.4 K/mm3 (4.0-10.0) H 11/19/18 07:00 RBC 4.05 M/mm3 (3.60-5.2) 11/19/18 07:00 Hgb 8.4 GM/dL (10.7-15.3) L 11/19/18 07:00 Hct 28.0 % (32.4-45.2) L 11/19/18 07:00 MCV 69.2 fl (80-96) L 11/19/18 07:00 MCH 20.8 pg (25.7-33.7) L 11/19/18 07:00 MCHC 30.1 g/dl (32.0-36.0) L 11/19/18 07:00 RDW 18.4 % (11.6-15.6) H 11/19/18 07:00 Plt Count 266 K/MM3 (134-434) 11/19/18 07:00 MPV 6.9 fl (7.5-11.1) L 11/19/18 07:00 Absolute Neuts (auto) 12.0 K/mm3 (1.5-8.0) H 11/19/18 07:00 Neutrophils % 83.7 % (42.8-82.8) H 11/19/18 07:00 Lymphocytes % 9.7 % (8-40) 11/19/18 07:00 Monocytes % 5.6 % (3.8-10.2) 11/19/18 07:00 Eosinophils % 0.7 % (0-4.5) 11/19/18 07:00 Basophils % 0.3 % (0-2.0) 11/19/18 07:00 Nucleated RBC % 0 % (0-0) 11/19/18 07:00 Problem List - Problems (1) 38 to 41 weeks gestation of Code(s): [id number] - (2) Previous section complicating , antepartum condition or complication Code(s): O34.219 - MATERNAL CARE FOR UNSP TYPE SCAR FROM PREVIOUS DEL (3) Status post repeat low transverse section Code(s): Z98.891 - HISTORY OF UTERINE SCAR FROM PREVIOUS SURGERY Assessment/Plan Status post repeat Ambulation Analgesia as needed Continue post op care
[2018-11-19 11:39] LABS: ANISOCYTOSIS 1+; MACROCYTOSIS 0; PLATELET ESTIMATE NORMAL
[2018-11-19] MEDS: IBUPROFEN 600 MG TABLET (FP) PO PRN ×2 (15:05→20:10)
[2018-11-19] MEDS: SIMETHICONE 80 MG TAB.CHEW (FP) PO PRN ×2 (15:05→20:10)
[2018-11-19] MEDS: oxyCODONE HCL 5 MG TABLET PO PRN ×2 (15:06→20:11)
[2018-11-19] MEDS: BISACODYL 10 MG SUPP.RECT RC PRN (22:22)
[2018-11-20] MEDS: oxyCODONE HCL 5 MG TABLET PO PRN (01:17)
[2018-11-20] MEDS: SIMETHICONE 80 MG TAB.CHEW (FP) PO PRN ×4 (01:17→20:10)
[2018-11-20] MEDS: IBUPROFEN 600 MG TABLET (FP) PO PRN ×4 (01:18→20:11)
[2018-11-20] MEDS: ACETAMINOPHEN 325 MG TABLET (FP) PO PRN ×3 (07:56→20:10)
[2018-11-20] MEDS: BISACODYL 10 MG SUPP.RECT RC PRN (07:56)
[2018-11-20] MEDS ORDERED: SENNOSIDES/DOCUSATE COMBO (SENNA PLUS) TABLET (UD) PO PRN (08:16)
[2018-11-20] MEDS: PRENATAL VITAMINS W/ FOLIC ACID TABLET (FP) PO SCH (09:34)
[2018-11-20] MEDS: FERROUS SO4 325 MG TABLET (FP) PO SCH ×2 (09:34→21:20)
--- NOTE | 2018-11-20 10:31 | CON.NEURO ---
Consult - History of Present Illness History of Present Illness: 33 yo Para 2 status post repeat , with R facial weakness since Sunday this week. Feels mild RIVERO , R face heaviness, no diplopia, swallowing issues, no focal motor sensory c/o. no ear pain or rash. delivered healthy baby. - Past Medical History ...LMP: 02/20/18 - Past Surgical History Past Surgical History: Yes: None - Alcohol/Substance Use Hx Alcohol Use: No History of Substance Use: reports: None - Smoking History Smoking history: Never smoked Have you smoked in the past 12 months: No - Social History History of Recent Travel: No Home Medications - Allergies Allergies/Adverse Reactions: Allergies Allergy/AdvReac Type Severity Reaction Status Date / Time albuterol Allergy Mild Verified 11/17/18 14:22 clotrimazole Allergy Mild Itching Verified 11/17/18 14:22 - Home Medications Home Medications: Ambulatory Orders Pnv No.95/Ferrous Fum/Folic AC [ Vitamin Tablet] 1 each PO DAILY 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-Neuro Vital Signs: Vital Signs Temperature 98.8 F 11/20/18 09:02 Pulse Rate 112 H 11/20/18 09:02 Respiratory Rate 20 11/20/18 09:02 Blood Pressure 119/76 11/20/18 09:02 O2 Sat by Pulse Oximetry (%) 99 11/18/18 22:45 Labs: CBC, BMP 11/19/18 07:00 - Neuro Exam Level Of Consciousness: Yes: Alert (alert, EOMI, R peripheral facial palsy , no focal weakness, reflexes symmteric ) Problem List - Problems (1) Thacker's palsy affecting , antepartum Code(s): O99.350 - DISEASES OF THE NERVOUS SYS COMP , UNSP TRIMESTER; G51.0 - THACKER'S PALSY (2) Status post repeat low transverse section Code(s): Z98.891 - HISTORY OF UTERINE SCAR FROM PREVIOUS SURGERY Assessment/Plan 33 yo Para 2 status post repeat , with R facial weakness since Sunday this week. Feels mild RIVERO , R face heaviness, no diplopia, swallowing issues, no focal motor sensory c/o. no ear pain or rash. delivered healthy baby. AP : self limited R [place] palsy would defer RX at this juncture as she may nurse. should improve on its own in some months neurologically stable and can FU as outpt thanks DR. Darrius Huynh [phone]
--- NOTE | 2018-11-20 20:23 | PN ---
Post Note - Post Date of Delivery: 11/18/18 Post Day: 2 Vital Signs: Vital Signs - 24 hr 11/19/18 11/20/18 11/20/18 22:00 01:48 06:23 Temperature 98.7 F 98.5 F 99.1 F Pulse Rate 102 H 91 H 108 H Respiratory 18 20 20 Rate Blood Pressure 120/71 109/69 112/67 11/20/18 09:02 Temperature 98.8 F Pulse Rate 112 H Respiratory 20 Rate Blood Pressure 119/76 - Subjective Subjective: Other (Pt seen this am Pt with facial weakness neuology called) - Objective Afebrile: Yes Breast: Not engorged Abdomen: Soft, Non-tender Uterus: Fundus firm Vagina: Scant lochia Extremities: Non-tender - Assessment/Plan (1) Status post repeat low transverse section Assessment: Other (POD 2 Faicial weakenss Belsy Palsy) Plan: Other ( Neurology consult)
--- NOTE | 2018-11-21 06:15 | DS ---
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 Vital Signs: Vital Signs Temperature 98.2 F 11/20/18 22:00 Pulse Rate 93 H 11/20/18 22:00 Respiratory Rate 18 11/20/18 22:00 Blood Pressure 120/75 11/20/18 22:00 O2 Sat by Pulse Oximetry (%) 99 11/18/18 22:45 Constitutional: Yes: Well Nourished, No Distress, Calm Eyes: Yes: Conjunctiva Clear HENT: Yes: Atraumatic Neck: Yes: Supple Cardiovascular: Yes: Regular Rate and Rhythm Respiratory: Yes: Regular Gastrointestinal: Yes: Soft ....Post : Yes: Uterus firm, Uterus non-tender Wound/Incision: Yes: Clean/Dry, Well Approximated Neurological: Yes: Alert, Oriented Psychiatric: Yes: Alert, Oriented Labs: CBC, BMP 11/19/18 07:00 Delivery - Delivery Type of Anesthesia: Spinal Episiotomy/Laceration: None EBL (cc): 500 Delivery, Single - Stages of Labor Date 1st Stage Initiatied: 11/19/18 Time 1st Stage Initiated: 13:00 Date of Delivery: 11/18/18 Time of Delivery: 21:31 Time Placenta Delivered: 21:32 - 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 Present: Yes Name: Kalie Silverio Infant Gender: Male Weight: 8 lb Position: Left, OT Total Hours ROM (Hrs/Mins): 2 minutes - 1 Minute Total Score: 9 5 Minutes Total Score: 9 - Feeding Plan Initial Plan: Elected not to breastfeed exclusively throughout hospitalization Discharge Summary Reason For Visit: REPEAT C\S Current Active Problems 38 to 41 weeks gestation of (Acute) Scanlon's palsy affecting , antepartum (Acute) Previous section complicating , antepartum condition or complication (Acute) Status post repeat low transverse section (Acute) Hospital Course: Pt admitted on 11/18/18 and underwent uncomplicated delivery. Pt seen by neurology on post op day 2 for bells palsy, was not started on any medication , to monitor and allow spontaneous resolution and follow up as outpatient per neuro. Otherwise uncomplicated course and was discharged on postop day 3. Condition: Stable - Instructions Diet, Activity, Other Instructions: Regular diet No driving, no lifting x 4 weeks F/U with MD in 1 week Referrals: Darrius Huynh DO [Staff Physician] - 1 Month Disposition: HOME - Home Medications Comprehensive Discharge Medication List: Ambulatory Orders Pnv No.95/Ferrous Fum/Folic AC [ Vitamin Tablet] 1 each PO DAILY
[2018-11-21 08:24] LABS: BASO % 0.4 % (0-2.0); EOS % 3.6 % (0-4.5); HEMATOCRIT 27.9 % (32.4-45.2); HEMOGLOBIN 8.4 GM/dL (10.7-15.3); LYMPH % 11.5 % (8-40); MCH 20.7 pg (25.7-33.7); MCHC 30.1 g/dl (32.0-36.0); MEAN CELL VOLUME 68.7 fl (80-96); MONO % 8.3 % (3.8-10.2); NEUT % 76.2 % (42.8-82.8); PLATELET COUNT 345 K/MM3 (134-434); RBC 4.05 M/mm3 (3.60-5.2); RDW 18.7 % (11.6-15.6); WHITE BLOOD COUNT 12.9 K/mm3 (4.0-10.0)
[2018-11-21 08:39] VITALS: BP 120/69; PULSE 89; TEMP 99
[2018-11-21] MEDS: IBUPROFEN 600 MG TABLET (FP) PO PRN (09:12)
[2018-11-21] MEDS: ACETAMINOPHEN 325 MG TABLET (FP) PO PRN (09:12)
[2018-11-21] MEDS: SIMETHICONE 80 MG TAB.CHEW (FP) PO PRN (09:13)
[2018-11-21] MEDS: PRENATAL VITAMINS W/ FOLIC ACID TABLET (FP) PO SCH (09:14)
[2018-11-21] MEDS: FERROUS SO4 325 MG TABLET (FP) PO SCH (09:14)
[2018-11-21 10:32] LABS: PLATELET ESTIMATE NORMAL
--- NOTE | 2018-11-22 00:33 | OP ---
DATE OF OPERATION: 11/18/2018 PREOPERATIVE DIAGNOSIS: Previous section, in labor, 38.4 weeks' gestation. POSTOPERATIVE DIAGNOSIS: Previous section, in labor, 38.4 weeks' gestation. PROCEDURE: Repeat low transverse section. SURGEON: Bambi Cochran MD TAX SENIOR ASSOCIATE: TAMEKA Flowers ANESTHESIA: Spinal. COMPLICATIONS: None. ESTIMATED BLOOD LOSS: 600 mL. DESCRIPTION OF PROCEDURE: Patient was taken to the operating room where spinal anesthesia was administered. Patient was then prepped and draped in proper sterile fashion. A Pfannenstiel skin incision was made and carried down to the underlying layer of fascia. The fascia was incised in the midline and extended laterally. The superior aspect of the fascial incision was then grasped with a Jane clamp, elevated, and the rectus muscle dissected out bluntly. Attention was then turned to the anterior aspect of the fascial incision which, in a similar fashion, was then grasped with a Jane clamp, elevated, and the rectus muscle dissected off bluntly. The rectus muscle was then in the midline. The peritoneum identified and entered sharply with the Metzenbaum scissors. The peritoneal incision was extended superiorly and inferiorly with good visualization of the bladder. Then, the vesicouterine peritoneum was then grasped with a pickup and entered sharply with the Metzenbaum scissors. This incision was extended laterally and a bladder flap created digitally. The bladder blade was then reinserted, and the lower uterine segment was incised using a 10-blade. This incision was extended laterally and the head delivered atraumatically. Nose and mouth were suctioned and the cord clamped and cut. The was handed to the waiting utility arborist. The placenta was removed manually. The uterus exteriorized and cleared of all clots and debris. The uterine incision was repaired using 0 Biosyn in a running locked fashion. A second layer of the same suture was used as a means to provide excellent hemostasis. The pelvis was then completely irrigated. The uterus was returned to the abdomen. The peritoneum was closed using 2-0 Biosyn, and the fascia was reapproximated using 0 Vicryl in a running fashion. The skin was closed with key. Patient tolerated the procedure well. Patient was then taken to PACU in stable condition. PATHOLOGY: Placenta. Diamante GRACE/[id number]
--- NOTE | 2018-11-22 10:53 | PATH ---
Surgical Pathology Report Patient Name: TOÑO BERNABE Med. Rec. 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 Specimen(s) Received PLACENTA Clinical History , SAB x1, term x1, 2013 full term demise, rubella negative, anemia Final Diagnosis PLACENTA, SECTION: 475 G THIRD TRIMESTER PLACENTA WITH TRIVASCULAR UMBILICAL CORD AND UNREMARKABLE PLACENTAL MEMBRANES. Electronically Signed Kate Cagle M.D. Gross Description The specimen is received fresh labeled placenta and is a 475 gram, 17.5 x 15.0 x 3.0 cm. placenta with attached membranes and umbilical cord. The attached membranes are hale, translucent with focal opacities and insert marginally. The umbilical cord measures 30 cm. in length and averages 1.0 cm. in diameter. The cord inserts eccentrically, 4 cm. to the nearest margin. No true knots or strictures are identified. Cut surface of the umbilical cord reveals 3 vessels. The surface is navarro-blue with minimal fibrin deposition and appropriate caliber vessels. The maternal surface is red-brown with focal defects. Sectioning reveals red-brown, spongy parenchyma. No lesions are identified. Sales Support Advisor sections are submitted in three cassettes as follows: 1- membrane rolls and umbilical cord; 2-3- full thickness sections of placenta. /11/20/2018 [facility]11/20/2018
== END 2018-11-21 12:40 | disposition home or self-care (01) | DRG 540 ==
LOC: JDEL 18:40 → JLDR 19:40 → J3W 11-19 00:20
PROVIDERS: ADMIT Obstetrics & Gynecology; ATTEND Obstetrics & Gynecology
PROC: 10D00Z1 Extraction of Products of Conception, Low, Open Approach (ICD-10-PCS; principal; 2018-11-18)
DX: O34.211 Maternal care for low transverse scar from previous cesarean delivery (principal); N85.8 Other specified noninflammatory disorders of uterus; Z3A.38 38 weeks gestation of pregnancy; O26.893 Other specified pregnancy related conditions, third trimester; R51 Headache; G51.0 Bell's palsy; Z37.0 Single live birth
CPT/HCPCS: 36415; 85025; 88307-TC; 90715; 90732; G0009

== ENCOUNTER 2019-04-08 21:30 | Emergency (ER) | payer OTHER ==
--- NOTE | 2019-04-08 21:45 | PDOC ---
Rapid Medical Evaluation Time Seen by Provider: 04/08/19 21:37 Medical Evaluation: Allergies Allergy/AdvReac Type Severity Reaction Status Date / Time albuterol Allergy Mild Verified 11/17/18 14:22 clotrimazole Allergy Mild Itching Verified 11/17/18 14:22 04/08/19 21:41 CC: rash to face. Also with chest pain PE: erythematous rash to face. OP-WNL. No stridor. Lungs CTAB. Orders: cardiac w/u Patient will proceed to the ER for further evaluation. Discharge Disposition - Diagnosis Chest pain - Referrals - Patient Instructions - Post Discharge Activity
[2019-04-08 21:53] VITALS: BP 157/107; TEMP 98.8; BMI 29.2
--- NOTE | 2019-04-08 22:08 | PDOC ---
History of Present Illness - General Chief Complaint: Chest Pain Stated Complaint: ALLERGY Time Seen by Provider: 04/08/19 21:37 - History of Present Illness Initial Comments: 04/08/19 22:08 Ms. Willa Garnica is a 33 yo female w/ pmh of migraines who presents for evaluation of rash to face for the last day. Patient reports she took benadryl and it did not help. Patient further endorses headache consistent w/ her normal migraines. Denies other symptoms at this time. The patient denies chest pain, shortness of breath, and dizziness. Denies fever , chills, nausea, vomit, diarrhea and constipation. Denies dysuria, frequency, urgency and hematuria. Past History - Past Medical History Allergies/Adverse Reactions: Allergies Allergy/AdvReac Type Severity Reaction Status Date / Time albuterol Allergy Mild Verified 04/08/19 21:50 clotrimazole Allergy Mild Itching Verified 04/08/19 21:50 Home Medications: Ambulatory Orders Pnv No.95/Ferrous Fum/Folic AC [ Vitamin Tablet] 1 each PO DAILY Cephalexin Monohydrate [Keflex -] 500 mg PO BID #14 capsule 04/08/19 Anemia: No Asthma: Yes Cancer: No Cardiac Disorders: No CVA: No COPD: No CHF: No Dementia: No Diabetes: No GI Disorders: No Disorders: No HTN: No Hypercholesterolemia: No Liver Disease: No Seizures: No Thyroid Disease: No - Surgical History Abdominal Surgery: No Appendectomy: No Cardiac Surgery: No Cholecystectomy: No Lung Surgery: No Neurologic Surgery: No Orthopedic Surgery: No - Reproductive History (#): 3 Para: 1 Spontaneous : 0 - Immunization History Immunization Up to Date: Yes - Psycho Social/Smoking Cessation Hx Smoking History: Never smoked Have you smoked in the past 12 months: No Information on smoking cessation initiated: No Hx Alcohol Use: No Drug/Substance Use Hx: No Substance Use Type: None Hx Substance Use Treatment: No Review of Systems - Review of Systems Comments:: 04/08/19 22:26 GENERAL/CONSTITUTIONAL: No fever or chills. No weakness. HEAD, EYES, EARS, NOSE AND THROAT: No change in vision. No ear pain or discharge. No sore throat. CARDIOVASCULAR: No chest pain or shortness of breath RESPIRATORY: No cough, wheezing, or hemoptysis. GASTROINTESTINAL: No nausea, vomiting, diarrhea or constipation. GENITOURINARY: No dysuria, frequency, or change in urination. MUSCULOSKELETAL: No joint or muscle swelling or pain. No neck or back pain. SKIN: +Face rash as described. NEUROLOGIC: +Migraine headache, no vertigo, loss of consciousness, or change in strength/sensation. ENDOCRINE: No increased thirst. No abnormal weight change HEMATOLOGIC/LYMPHATIC: No anemia, easy bleeding, or history of blood clots. ALLERGIC/IMMUNOLOGIC: No hives or skin allergy. *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 - Vital Signs Last Vital Signs Temp Pulse Resp BP Pulse Ox 98.8 F 105 H 18 157/107 H 100 04/08/19 21:45 04/08/19 21:45 04/08/19 21:45 04/08/19 21:45 04/08/19 21:45 - 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 Comments: 04/08/19 22:31 GENERAL: Awake, alert, and fully oriented, in no acute distress HEAD: No signs of trauma, normocephalic, atraumatic EYES: PERRLA, EOMI, sclera anicteric, conjunctiva clear ENT: Auricles normal inspection, hearing grossly normal, nares patent, oropharynx clear without exudates. Moist mucosa NECK: Normal ROM, supple, no lymphadenopathy, JVD, or masses LUNGS: No distress, speaks full sentences, clear to auscultation bilaterally HEART: Regular rate and rhythm, normal S1 and S2, no murmurs, rubs or gallops, peripheral pulses normal and equal bilaterally. ABDOMEN: Soft, nontender, normoactive bowel sounds. No guarding, no rebound. No masses EXTREMITIES: Normal inspection, Normal range of motion, no edema. No clubbing or cyanosis. NEUROLOGICAL: Cranial nerves II through XII grossly intact. Normal speech, normal gait, no focal sensorimotor deficits SKIN: +Plethoric rash to face. Warm, Dry, normal turgor, no lesions noted. ED Treatment Course - LABORATORY CBC & Chemistry Diagram: 04/08/19 21:57 04/08/19 21:57 Medical Decision Making - Medical Decision Making 04/08/19 23:00 Ms. Crouch is a 33 yo female w/ pmh as described who presents for evaluation of headache and rash. Patient found to have UTI as below w/out other concerning symptoms. Patient well appearing and UTI treated with keflex in ER as well as Rx sent to patient's pharmacy. Patient given IM steroids for resolution of rash and toradol for pain control. No concern for acute process at this time and patient will f/u outpatient as needed. EKG normal sinus rhythm w/ slight tachycardia to 102. CXR negative. Patient well appearing. Discharging to home. Discharge - Discharge Information Problems reviewed: Yes Clinical Impression/Diagnosis: Rash UTI (urinary tract infection) Qualifiers: Urinary tract infection type: site unspecified Hematuria presence: without hematuria Qualified Code(s): N39.0 - Urinary tract infection, site not specified Disposition: HOME - Additional Discharge Information Prescriptions: Cephalexin Monohydrate [Keflex -] 500 mg PO BID #14 capsule - Follow up/Referral Referrals: Rehana Che [Primary Care Provider] - - Patient Discharge Instructions Patient Printed Discharge Instructions: DI for Urinary Tract Infection (UTI) Additional Instructions: You were evaluated today in the ER for your symptoms. We provided steroids for your rash and antibiotics for your urinary tract infection. A prescription was sent to your pharmacy. Take all medications as proscribed. Follow-up with primary care provider later in the week for further evaluation. Return to ER if any fever, chills, pain, or other concerning symptoms. Usted fue evaluado hoy en la cammy de emergencias por francheska sntomas. Proporcionamos esteroides para gasca erupcin y antibiticos para gasca infeccin del tracto urinario. Se envi samantha receta a gasca farmacia. [place] todos los medicamentos segn lo proscrito. Seguimiento con el proveedor de atencin primaria ms adelante en la semana para samantha evaluacin adicional. Regrese a la cammy de emergencias si tiene fiebre, escalofros, dolor u otros sntomas relacionados. Print Language: KHMER - Post Discharge Activity Work/Back to School Note: Back to Work
[2019-04-08 22:09] LABS: EOS % 2.1 % (0-4.5); HEMATOCRIT 40.1 % (32.4-45.2); HEMOGLOBIN 12.6 GM/dL (10.7-15.3); LYMPH % 19.8 % (8-40); MCH 24.9 pg (25.7-33.7); MCHC 31.4 g/dl (32.0-36.0); MEAN CELL VOLUME 79.2 fl (80-96); MEAN PLT VOLUME 7.7 fl (7.5-11.1); MONO % 7.8 % (3.8-10.2); NEUT % 69.3 % (42.8-82.8); PLATELET COUNT 349 K/MM3 (134-434); RBC 5.07 M/mm3 (3.60-5.2); RDW 15.7 % (11.6-15.6); WHITE BLOOD COUNT 11.7 K/mm3 (4.0-10.0)
[2019-04-08 22:14] LABS: EPI CELLS 2.8 /HPF (0-5/HPF); HYALINE CASTS 5 /lpf (0-8); PH,URINE 5.5 (5.0-8.0); URINE APPEARANCE CLEAR; URINE BACTERIA 172.2 /hpf (NEGATIVE); URINE BILIRUBIN NEGATIVE (NEGATIVE); URINE COLOR YELLOW; URINE GLUCOSE (UA) NEGATIVE (NEGATIVE); URINE KETONE NEGATIVE (NEGATIVE); URINE LEUK ESTERASE 2+ (NEGATIVE); URINE NITRITE NEGATIVE (NEGATIVE); URINE PROTEIN NEGATIVE (NEGATIVE); URINE RBC 1 /hpf (0-4); URINE UROBILINOGEN 0.2 mg/dL (0.2-1.0); URINE WBC 40 /hpf (0-5)
--- NOTE | 2019-04-08 22:17 | PDOC ---
Attending Attestation - Resident Resident Name: Scar Cooley - ED Attending Attestation I have performed the following: I have examined & evaluated the patient, The case was reviewed & discussed with the resident, I agree w/resident's findings & plan - HPI HPI: 04/08/19 22:58 see resident hpi - Physicial Exam PE: 04/08/19 22:58 agree with resident exam - Medical Decision Making 04/08/19 22:58 33-year-old female with facial rash, possibly due to hair chemicals Airway is patent Patient had initially communicated that she had chest pain but is actually only here for the rash Urine consistent with urinary tract infection She will be given dexamethasone 10 mg IM in the emergency department and discharged with Keflex for her urinary tract infection
[2019-04-08 22:36] LABS: PROTHROMBIN TIME (PATIENT) 11.8 SEC (9.7-13.0)
[2019-04-08 22:39] LABS: ALBUMIN 3.6 g/dl (3.4-5.0); ALK PHOS 138 U/L (45-117); BILIRUBIN,TOTAL 0.3 mg/dL (0.2-1); BLOOD UREA NITROGEN 10.2 mg/dL (7-18); CALCIUM 8.7 mg/dL (8.5-10.1); CHLORIDE 105 mmol/L (98-107); CO2 28 mmol/L (21-32); CREATININE 0.7 mg/dL (0.55-1.3); GLUCOSE,RANDOM 97 mg/dL (74-106); SGPT/ALT 22 U/L (13-61); SODIUM 140 mmol/L (136-145); TOT PROT 7.5 g/dl (6.4-8.2)
[2019-04-08 22:40] LABS: ANION GAP 6 MMOL/L (8-16); MAGNESIUM 2.3 mg/dL (1.8-2.4); POTASSIUM 4.5 mmol/L (3.5-5.1); SGOT/AST 20 U/L (15-37)
[2019-04-08] MEDS ORDERED: DEXAMETHASONE SOD PHOSPHATE 10 MG/1 ML VIAL IM ONE (22:57)
[2019-04-08] MEDS ORDERED: CEPHALEXIN MONOHYDRATE 500 MG CAPSULE (UD) PO ONE (22:58)
[2019-04-08] MEDS ORDERED: DEXAMETHASONE SOD PHOSPHATE 10 MG/1 ML VIAL ONE (23:09)
[2019-04-08] MEDS ORDERED: CEPHALEXIN MONOHYDRATE 500 MG CAPSULE (UD) ONE (23:09)
[2019-04-08] MEDS ORDERED: KETOROLAC TROMETHAMINE 15 MG/ML VIAL ONE (23:10)
[2019-04-08] MEDS ORDERED: KETOROLAC TROMETHAMINE 15 MG/ML VIAL IM ONE (23:14)
[2019-04-08] MEDS: KETOROLAC TROMETHAMINE 15 MG/ML VIAL IVPUSH ONE ×2 (23:21→23:46)
[2019-04-08 23:25] VITALS: PULSE 86
--- NOTE | 2019-04-09 09:58 | EKG ---
Test Reason : Blood Pressure : / mmHG Vent. Rate : 102 BPM Atrial Rate : 102 BPM P-R Int : 170 ms QRS Dur : 064 ms QT Int : 344 ms P-R-T Axes : 062 036 031 degrees QTc Int : 448 ms SINUS TACHYCARDIA POSSIBLE LEFT ATRIAL ENLARGEMENT BORDERLINE ECG WHEN COMPARED WITH ECG OF 18-AUG-2018 18:48, NO SIGNIFICANT CHANGE WAS FOUND Confirmed by SERENA LAND MD ([id number]) on 04/09/2019 9:58:31 AM Referred By: Confirmed By:SERENA LAND MD
== END 2019-04-08 23:47 | disposition home or self-care (01) ==
LOC: JER 21:30
PROC: 3E0233Z Introduction of Anti-inflammatory into Muscle, Percutaneous Approach (ICD-10-PCS; principal; 2019-04-08)
PROC: 3E0233Z Introduction of Anti-inflammatory into Muscle, Percutaneous Approach (ICD-10-PCS; 2019-04-08)
DX: N39.0 Urinary tract infection, site not specified (principal); R21 Rash and other nonspecific skin eruption; G43.909 Migraine, unspecified, not intractable, without status migrainosus
CPT/HCPCS: 36415; 71046-TC-FY; 80053; 81003; 82550; 83735; 84484; 84703; 85025; 85610; 93005; 93010; 96372; 99284-25; J1100

== ENCOUNTER 2020-03-15 13:06 | Emergency (ER) | payer OTHER ==
[2020-03-15 13:16] VITALS: TEMP 98.4; BMI 29.9
--- NOTE | 2020-03-15 13:16 | PDOC ---
Rapid Medical Evaluation Time Seen by Provider: 03/15/20 13:09 Medical Evaluation: Allergies Allergy/AdvReac Type Severity Reaction Status Date / Time albuterol Allergy Mild Verified 03/15/20 13:10 clotrimazole Allergy Mild Itching Verified 03/15/20 13:10 03/15/20 13:12 Pt presents to the ER for headache and nausea. States her period is also late. She is concerned she may be . She also notes she has some nasal congestion. Also notes lower pelvic discomfort and no interest in food. Exam: neurologically intact, blood pressure elevated Orders: labs, IV, urine Pt to proceed to the ER for further evaluation Discharge Disposition - Diagnosis Headache Qualifiers: Headache type: unspecified - Referrals - Patient Instructions - Post Discharge Activity
[2020-03-15] MEDS ORDERED: METOCLOPRAMIDE HCL INJECTION 10 MG/2 ML VIAL IVPB ONE (13:17)
[2020-03-15] MEDS ORDERED: SODIUM CHLORIDE 1,000 ML IV STA (13:17)
[2020-03-15] MEDS ORDERED: METOCLOPRAMIDE HCL INJECTION 10 MG/2 ML VIAL ONE (13:28)
--- NOTE | 2020-03-15 14:07 | PDOC ---
History of Present Illness - General Chief Complaint: Headache Stated Complaint: HEADACHE/NAUSEA Time Seen by Provider: 03/15/20 13:09 History Source: Patient Exam Limitations: No Limitations - History of Present Illness Initial Comments: 03/15/20 14:03 34-year-old female history of hypertension not on any medication for 5 years, , miscarriage x 2 presents complaining of mild constant headache x3 days with intermittent nausea and photosensitivity. Also reports mild dysuria x 2 days. Denies neck pain, fever, chills, vomiting, head injury, changes in vision, weakness, back pain, chest pain, shortness of breath, abdominal pain, known sick contacts, recent travel or illness. LMP 02/06, took home test 1 week ago which was negative. Patient is trying to conceive. ROS: as above PE: GENERAL: well-appearing, NAD HEAD: NCAT EYES: Pupils equal, round and reactive to light, sclera anicteric, EOMI, conjunctiva clear ENT: Normal bilateral ear canals, normal bilateral TMs, pharynx: no erythema, no exudate, uvula midline NECK: supple CHEST: nontender RESP: clear, no w/r/r CARDIO: rrr, no m/g/r ABD: +BS, soft, nontender, non distended BACK: no midline spinal ttp, no CVAT EXTREMITIES: Normal range of motion, no edema NEUROLOGICAL: Normal speech, normal gait SKIN: Warm, Dry 03/15/20 15:40 Is this a multiple visit Asthma Patient?: No Past History - Medical History Allergies/Adverse Reactions: Allergies Allergy/AdvReac Type Severity Reaction Status Date / Time albuterol Allergy Mild Verified 03/15/20 13:10 clotrimazole Allergy Mild Itching Verified 03/15/20 13:10 Home Medications: Ambulatory Orders Acetaminophen [Tylenol] 650 mg PO PRN 10/21/19 Cephalexin Monohydrate [Keflex -] 500 mg PO BID 7 Days #14 capsule 03/15/20 Ibuprofen 600 mg PO Q6H #20 tablet 03/15/20 Anemia: No Asthma: Yes Cancer: No Cardiac Disorders: No CVA: No COPD: No CHF: No Dementia: No Diabetes: No GI Disorders: No Disorders: No HTN: No Hypercholesterolemia: No Liver Disease: No Seizures: No Thyroid Disease: No - Surgical History Abdominal Surgery: No Appendectomy: No Cardiac Surgery: No Cholecystectomy: No Lung Surgery: No Neurologic Surgery: No Orthopedic Surgery: No - Reproductive History Is Patient Now?: No (#): 3 Para: 1 Spontaneous : 0 - Immunization History Immunization Up to Date: Yes - Psycho-Social/Smoking History Smoking History: Never smoked Have you smoked in the past 12 months: No - Substance Abuse Hx (Audit-C & DAST Scrn) How often the patient has a drink containing alcohol: Never Score: In Men: 4 or > Positive; In Women: 3 or > Positive: 0 Screen Result (Pos requires Nsg. Audit-10AR): Negative In the last yr the pt used illegal drug/Rx for NonMed reason: No Score: Yes response is considered Positive: 0 Screen Result (Positive result requires Nsg. DAST-10): Negative *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 - Vital Signs Last Vital Signs Temp Pulse Resp BP Pulse Ox 98.4 F 83 20 150/103 H 100 03/15/20 13:10 03/15/20 13:10 03/15/20 13:10 03/15/20 13:10 03/15/20 13:10 ED Treatment Course - LABORATORY CBC & Chemistry Diagram: 03/15/20 13:40 03/15/20 13:40 Medical Decision Making - Medical Decision Making 03/15/20 14:06 34-year-old female history of hypertension not on any medication for 5 years, , miscarriage x 2 presents complaining of mild constant headache x3 days with intermittent nausea and photosensitivity. Also reports mild dysuria x 2 days. Denies neck pain, fever, chills, vomiting, head injury, changes in vision, weakness, back pain, chest pain, shortness of breath, abdominal pain, known sick contacts, recent travel or illness. LMP 02/06, took home test 1 week ago which was negative. Patient is trying to conceive. ecg labs UA, urine culture BHCG IVF reglan, IV benadryl ordered in triage 03/15/20 16:12 repeat BP 127/93 Patient feels better after IV fluids and analgesia Discussed lab and UA results with patient Will send prescription for cephalexin to pharmacy Advised to alternate between acetaminophen and ibuprofen every 6 hours as needed for pain Note for work provided Advised patient to schedule an appointment with a PMD Discharge - Discharge Information Problems reviewed: Yes Clinical Impression/Diagnosis: Headache Qualifiers: Headache type: unspecified Headache chronicity pattern: unspecified pattern Intractability: not intractable Qualified Code(s): R51 - Headache Condition: Stable Disposition: HOME - Admission No - Additional Discharge Information Prescriptions: Ibuprofen 600 mg PO Q6H #20 tablet Cephalexin Monohydrate [Keflex -] 500 mg PO BID 7 Days #14 capsule - Follow up/Referral - Patient Discharge Instructions Additional Instructions: Alternate between acetaminophen 975 mg every 6 hours and ibuprofen 600 mg every 6 hours as needed for pain Call to schedule an appointment with a primary care physician within 1 week Note for work provided Take cephalexin 500 mg 1 tablet twice a day for 7 days to treat a mild urinary tract infection Return to ED if worsening symptoms or concerns - Post Discharge Activity Work/Back to School Note: Back to Work
[2020-03-15 14:21] LABS: BASO % 0.8 % (0-2.0); EOS % 2.8 % (0-4.5); HEMATOCRIT 44.4 % (32.4-45.2); HEMOGLOBIN 13.7 GM/dL (10.7-15.3); MCH 25.3 pg (25.7-33.7); MCHC 30.9 g/dl (32.0-36.0); MEAN CELL VOLUME 81.7 fl (80-96); MEAN PLT VOLUME 8.1 fl (7.5-11.1); MONO % 7.4 % (3.8-10.2); PLATELET COUNT 358 K/MM3 (134-434); RBC 5.44 M/mm3 (3.60-5.2); RDW 15.4 % (11.6-15.6); WHITE BLOOD COUNT 7.5 K/mm3 (4.0-10.0)
[2020-03-15 14:30] LABS: INR 1.06 (0.83-1.09); PROTHROMBIN TIME (PATIENT) 12.5 SEC (9.7-13.0)
[2020-03-15 14:36] LABS: EPI CELLS 33 /uL (0-25.1); HYALINE CASTS 2 /uL (0-3.1); URINE APPEARANCE CLEAR; URINE BACTERIA 425 /uL (0-1359); URINE BILIRUBIN NEGATIVE (NEGATIVE); URINE COLOR YELLOW; URINE GLUCOSE (UA) NEGATIVE (NEGATIVE); URINE KETONE NEGATIVE (NEGATIVE); URINE LEUK ESTERASE 1+ (NEGATIVE); URINE NITRITE NEGATIVE (NEGATIVE); URINE PROTEIN NEGATIVE (NEGATIVE); URINE RBC 12 /uL (0-23.9); URINE UROBILINOGEN 0.2 mg/dL (0.2-1.0); URINE WBC 37 /uL (0-25.8)
[2020-03-15 15:19] LABS: ALBUMIN 3.8 g/dl (3.4-5.0); ALK PHOS 118 U/L (45-117); ANION GAP 6 MMOL/L (8-16); BILIRUBIN,TOTAL 0.5 mg/dL (0.2-1); BLOOD UREA NITROGEN 9.1 mg/dL (7-18); CALCIUM 8.9 mg/dL (8.5-10.1); CHLORIDE 103 mmol/L (98-107); CO2 30 mmol/L (21-32); CREATININE 0.9 mg/dL (0.55-1.3); GLUCOSE,RANDOM 76 mg/dL (74-106); POTASSIUM 4.4 mmol/L (3.5-5.1); SGOT/AST 19 U/L (15-37); SGPT/ALT 23 U/L (13-61); SODIUM 139 mmol/L (136-145)
[2020-03-15 15:49] VITALS: BP 127/93; PULSE 70
--- NOTE | 2020-03-16 10:15 | EKG ---
Test Reason : Blood Pressure : / mmHG Vent. Rate : 074 BPM Atrial Rate : 074 BPM P-R Int : 148 ms QRS Dur : 066 ms QT Int : 366 ms P-R-T Axes : 042 042 040 degrees QTc Int : 406 ms NORMAL SINUS RHYTHM NORMAL ECG WHEN COMPARED WITH ECG OF 08-APR-2019 21:40, NO SIGNIFICANT CHANGE WAS FOUND Confirmed by MD Hoyos Edward ([id number]) on 03/16/2020 10:15:20 AM Referred By: Confirmed By:Ervin Hoyos MD
== END 2020-03-15 16:20 | disposition home or self-care (01) ==
LOC: JER 13:06
PROC: 3E033NZ Introduction of Analgesics, Hypnotics, Sedatives into Peripheral Vein, Percutaneous Approach (ICD-10-PCS; principal; 2020-03-15)
PROC: 3E033GC Introduction of Other Therapeutic Substance into Peripheral Vein, Percutaneous Approach (ICD-10-PCS; 2020-03-15)
PROC: 3E0337Z Introduction of Electrolytic and Water Balance Substance into Peripheral Vein, Percutaneous Approach (ICD-10-PCS; 2020-03-15)
DX: R51 Headache (principal)
CPT/HCPCS: 36415; 80053; 81003; 84702; 85025; 85610; 87077; 87086; 87186; 93005; 93010; 96361; 96374; 96375; 99285-25

== ENCOUNTER 2021-05-19 11:35 | Inpatient (IN) | payer OTHER ==
[2021-05-19 14:00] VITALS: BMI 32.1
[2021-05-19 14:17] LABS: BASO % 0.5 % (0-2.0); EOS % 1.2 % (0-4.5); HEMATOCRIT 40.3 % (32.4-45.2); LYMPH % 12.1 % (8-40); MCH 25.8 pg (25.7-33.7); MCHC 32.2 g/dl (32.0-36.0); MEAN CELL VOLUME 80.1 fl (80-96); MEAN PLT VOLUME 8.8 fl (7.5-11.1); MONO % 5.8 % (3.8-10.2); NEUT % 80.4 % (42.8-82.8); PLATELET COUNT 255 10^3/uL (134-434); RBC 5.03 M/mm3 (3.60-5.2); RDW 23.4 % (11.6-15.6); WHITE BLOOD COUNT 9.8 K/mm3 (4.0-10.0)
[2021-05-19 14:24] LABS: INR 0.94 (0.83-1.09)
[2021-05-19 14:27] LABS: ACTIVATED PTT 25.8 SECONDS (25.2-36.5)
[2021-05-19 14:45] LABS: ANISOCYTOSIS 2+; MACROCYTOSIS 2+; PLATELET ESTIMATE NORMAL
[2021-05-19 14:52] LABS: BLOOD UREA NITROGEN 5.9 mg/dL (7-18); CALCIUM 8.9 mg/dL (8.5-10.1)
[2021-05-19 14:56] LABS: CREATININE 0.4 mg/dL (0.55-1.3)
[2021-05-19] MEDS ORDERED: morphine SULFATE/PF 1 MG/2 ML (2cc Syringe - QUVA) EP ONE (17:05)
[2021-05-19] MEDS ORDERED: ONDANSETRON 4 MG/2 ML VIAL IVPUSH PRN (17:05)
[2021-05-19] MEDS ORDERED: morphine SULFATE (PF) 1 MG/2 ML SYRINGE ONE (17:13)
[2021-05-19] MEDS ORDERED: ceFAZolin SODIUM 1 GM VIAL ONE (17:14)
[2021-05-19] MEDS ORDERED: OXYTOCIN 20 UNITS in 0.9% NS 20 UNIT/1,000 ML INFUS.BAG IV ONE (17:15)
[2021-05-19] MEDS ORDERED: PHENYLEPHRINE HCL 10 MG/1 ML SINGLE DOSE VIAL ONE (17:19)
[2021-05-19] MEDS ORDERED: OXYTOCIN 10 UNITS/ML VIAL ONE ×3 (17:41→18:54)
[2021-05-19] MEDS ORDERED: MIDAZOLAM HCL 2 MG/2 ML SINGLE DOSE VIAL ONE (18:26)
[2021-05-19] MEDS ORDERED: ONDANSETRON 4 MG/2 ML VIAL ONE (18:27)
[2021-05-19] MEDS ORDERED: OXYTOCIN 20 UNITS in 0.9% NS 20 UNIT/1,000 ML INFUS.BAG IV SCH (19:30)
[2021-05-19 19:56] LABS: CORD HCO3 26.4 mmHg (20-29); CORD PCO2 62.6 mmHg (30-78); CORD pH 7.243 (7.14-7.44)
[2021-05-19 19:59] LABS: CORD BASE EXCESS -3.8 mmol/L (0-2); CORD HCO3 23.2 mmHg (20-29); CORD PCO2 49.1 mmHg (30-78); CORD pH 7.293 (7.14-7.44)
[2021-05-19] MEDS: oxyCODONE HCL 5 MG TABLET PO SCH (21:38)
[2021-05-19] MEDS ORDERED: morphine SULFATE 4 MG/ML VIAL IVPB ONE (23:45)
[2021-05-20] MEDS: oxyCODONE HCL 5 MG TABLET PO SCH ×7 (01:38→23:42)
[2021-05-20] MEDS: ACETAMINOPHEN 325 MG TABLET (FP) PO PRN ×2 (06:13→23:41)
[2021-05-20 09:00] LABS: BASO % 0.5 % (0-2.0); EOS % 1.7 % (0-4.5); HEMATOCRIT 33.7 % (32.4-45.2); HEMOGLOBIN 10.9 GM/dL (10.7-15.3); LYMPH % 8.4 % (8-40); MCH 25.6 pg (25.7-33.7); MCHC 32.4 g/dl (32.0-36.0); MEAN CELL VOLUME 79.1 fl (80-96); MONO % 6.1 % (3.8-10.2); NEUT % 83.3 % (42.8-82.8); PLATELET COUNT 216 10^3/uL (134-434); RBC 4.26 M/mm3 (3.60-5.2); RDW 23.6 % (11.6-15.6); WHITE BLOOD COUNT 11.6 K/mm3 (4.0-10.0)
[2021-05-20] MEDS: SIMETHICONE 80 MG TAB.CHEW (FP) PO PRN ×3 (12:01→23:41)
[2021-05-20] MEDS: IBUPROFEN 600 MG TABLET (FP) PO PRN (14:21)
[2021-05-21] MEDS: oxyCODONE HCL 5 MG TABLET PO SCH ×4 (05:26→17:23)
[2021-05-21] MEDS: IBUPROFEN 600 MG TABLET (FP) PO PRN ×2 (12:45→21:01)
[2021-05-21] MEDS: SIMETHICONE 80 MG TAB.CHEW (FP) PO PRN ×2 (12:45→21:01)
[2021-05-22 07:46] LABS: BASO % 0.7 % (0-2.0); HEMATOCRIT 32.6 % (32.4-45.2); HEMOGLOBIN 10.5 GM/dL (10.7-15.3); LYMPH % 9.3 % (8-40); MCH 25.7 pg (25.7-33.7); MCHC 32.2 g/dl (32.0-36.0); MEAN CELL VOLUME 79.7 fl (80-96); MEAN PLT VOLUME 7.5 fl (7.5-11.1); MONO % 6.8 % (3.8-10.2); NEUT % 81.2 % (42.8-82.8); PLATELET COUNT 279 10^3/uL (134-434); RDW 23.3 % (11.6-15.6); WHITE BLOOD COUNT 14.5 K/mm3 (4.0-10.0)
[2021-05-22] MEDS: IBUPROFEN 600 MG TABLET (FP) PO PRN (09:20)
[2021-05-22] MEDS: SIMETHICONE 80 MG TAB.CHEW (FP) PO PRN (09:21)
[2021-05-22 11:00] VITALS: BP 123/82; PULSE 114; TEMP 97.7
== END 2021-05-22 13:00 | disposition home or self-care (01) | DRG 540 ==
LOC: JDEL 11:35 → JLDR 12:25 → J3W 20:30
PROVIDERS: ADMIT Obstetrics & Gynecology Maternal & Fetal Medicine; ATTEND Obstetrics & Gynecology Maternal & Fetal Medicine
PROC: 10D00Z1 Extraction of Products of Conception, Low, Open Approach (ICD-10-PCS; principal; 2021-05-19)
PROC: 0UL70ZZ Occlusion of Bilateral Fallopian Tubes, Open Approach (ICD-10-PCS; 2021-05-19)
DX: O34.211 Maternal care for low transverse scar from previous cesarean delivery (principal); Z3A.37 37 weeks gestation of pregnancy; Z37.0 Single live birth; O75.89 Other specified complications of labor and delivery; N93.9 Abnormal uterine and vaginal bleeding, unspecified; Z30.2 Encounter for sterilization
CPT/HCPCS: 36415; 36600; 59025; 80048; 82803; 85025; 85610; 85730; 86780; 86850; 86900; 86901; 88302-TC; 88307-TC; 96360; C9803; G0463-25; U0003; U0005

== ENCOUNTER 2022-07-10 10:28 | Emergency (ER) | payer OTHER ==
[2022-07-10 10:39] VITALS: BP 167/97; PULSE 84; RESP 20; TEMP 98.1; BMI 28.8
[2022-07-10 11:48] LABS: EPI CELLS 25 /uL (0-25.1); HYALINE CASTS 0 /uL (0-3.1); URINE APPEARANCE CLEAR; URINE BACTERIA 353 /uL (0-1359); URINE BILIRUBIN NEGATIVE (NEGATIVE); URINE COLOR YELLOW; URINE GLUCOSE (UA) NEGATIVE (NEGATIVE); URINE KETONE NEGATIVE (NEGATIVE); URINE LEUK ESTERASE 2+ (NEGATIVE); URINE NITRITE NEGATIVE (NEGATIVE); URINE PROTEIN NEGATIVE (NEGATIVE); URINE RBC 32 /uL (0-23.9); URINE UROBILINOGEN 0.2 mg/dL (0.2-1.0); URINE WBC 82 /uL (0-25.8)
[2022-07-10 11:49] LABS: HCG,QUALITATIVE URINE Negative
== END 2022-07-10 12:36 | disposition home or self-care (01) ==
LOC: JERFT 10:28
DX: N39.0 Urinary tract infection, site not specified (principal)
CPT/HCPCS: 81003; 84703; 87086; 99283-25